=== PATIENT | female | born 1990 | race Caucasian/White ===

== ENCOUNTER 2016-05-01 20:32 | Emergency (ER) | payer MEDICAID ==
[~2016-05-01 20:32] MED LIST: ACET50TA PO; CELE10TA PO; HYDR-3363 PO; IBUP600T26 PO; IBUP80TA PO; PRENTAB43 PO; PRENTAB9 PO; TRAZ50TA2 PO
[2016-05-01] MEDS ORDERED: KETOROLAC TROMETHAMINE 10 MG TAB As Ordered ONE (21:43)
--- NOTE | 2016-05-01 21:56 | EDDOCDS ---
Physician Documentation [facility] Name: Phyllis Horne Age: 25 yrs Sex: Female : 1990 Arrival Date: 05/01/2016 Time: 20:32 Bed 5 Private MD: No Pcp Disposition: 05/01 21:39 Critical Care: Critical care not applicable. pc Disposition: 05/01/16 21:41 Discharged to Home/Self Care. Impression: Fracture of tooth (traumatic) - chronic. - Condition is Stable. - Discharge Instructions: Dental Fracture, Dental Pain. - Prescriptions for ketorolac 10 mg Oral Tablet - take 1 tablet by ORAL route every 6 hours As needed MDD- 40mg. Up to 5 days total use.; 20 tablet. - Medication Reconciliation, Local Pharmacy Hours form. - Follow up: Your, Dentist; When: Call to arrange an appointment; Reason: Continuance of care. - Problem is chronic. - Symptoms are unchanged. HPI: 21:33 This 25 yrs old Female presents to ER via Walkin/Carried/Asstd with pc complaints of Toothache. 21:33 The history is obtained from the patient. She complains of left upper dental pain for 3 pc weeks, not able to see her dentist for 2 weeks. She denies facial swelling, fevers or chills. The patient has experienced similar episodes in the past, multiple times. The patient has not recently seen a physician. Historical: - Allergies: Amoxicillin (Hives); - Home Meds: 1. none - PMHx: Substance Abuse; Depression; Suicide Attempt by OD; - PSHx: Tonsillectomy; - The history from nurses notes was reviewed: and elements of the historical information I have obtained differs from that reported to nursing. - Social history: Smoking status: Patient uses tobacco products, heavy tobacco smoker. No barriers to communication noted, The patient speaks fluent Scottish, Speaks appropriately for age. - : The pt / caregiver states he / she is not on anticoagulants. Home medication list is obtained from the patient. - Hospitalizations: : No recent hospitalization is reported. - Exposure Risk Screening:: None identified. - Immunization history:: All immunizations up-to-date. - Family history: Not pertinent. - Social history:: the patient is a non-smoker, the patient does not drink alcohol, the patient does not use illicit drugs, but her EMR shows multiple admissions to the out-patient addictions clinic which she refuses to acknowledge when confronted. 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 pc Exam: 21:37 General Appearance: no acute distress, alert. pc 21:37 EENT: fractured left upper 1st molar without gingival edema or erythema and no signs of infection. No facial pain or erythema. Vital Signs: 20:36 BP 115 / 71; Pulse 105; Resp 16; Temp 97.6(O); Pulse Ox 100% ; Weight 49.9 kg / 110.01 cmb lbs; Height 5 ft. 3 in. (160.02 cm); Pain 9/10; 21:44 BP 131 / 71; Pulse 100; Resp 18; Temp 97.9(TE); Pulse Ox 98% on R/A; mynor 20:36 Body Mass Index 19.49 (49.90 kg, 160.02 cm) cmb MDM: 21:39 Differential Diagnosis: dental pain with fracture without infection. Plan: analgesia. pc Data reviewed: old medical records, vital signs, nurses notes. Test interpretation: none. The patient has been re-examined and re-evaluated. There is no appreciated change of the patient's symptoms at this time. Disposition: The historical points, examination findings, and any diagnostic results supporting the provided diagnosis, were discussed with the patient or legal guardian. The need for outpatient follow up with the provider listed on their discharge instructions was discussed. They were encouraged to return to [facility], or the nearest ED, if symptoms worsen/persist, or for any other questions/concerns. 21:42 ketorolac 10 mg PO once ordered. pc Administered Medications: 20:45 Drug: ketorolac 10 mg [ketorolac 10 mg tablet (1 tabs)] Route: PO; manuel Signatures: Bassem Bar MD MD pc Sovie, Carolyn, RN RN cas Zecher, Calvin, RN RN cz The chart was reviewed and I authenticate all verbal orders and agree with the evaluation and treatment provided.Corrections: (The following items were deleted from the chart) 21:38 20:41 PMHx: none; cz pc 21:38 20:41 PSHx: none; cz pc MTDD
--- NOTE | 2016-05-01 21:57 | EDDOCDS ---
Nurse's Notes [facility] Name: Phyllis Horne Age: 25 yrs Sex: Female : 1990 Arrival Date: 05/01/2016 Time: 20:32 Bed 5 Private MD: No Pcp Diagnosis: Fracture of tooth (traumatic)-chronic Presentation: 05/01 20:39 Presenting complaint: Patient states: she has had dental pain for a couple of weeks cz fractured molar left side of face. Adult Sepsis Screening: The patient does not have new or worsening altered mentation. Patient's respiratory rate is less than 22. Systolic blood pressure is greater than 100. Patient has a qSOFA score of 0- Negative Sepsis Screen. Suicide/Homicide risk assessment- the patient denies having any suicidal and/or homicidal ideations and does not present with any other emotional, behavioral or mental health complaints. 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 Transition of care: patient was not received from another setting of care. 20:39 Acuity: JORDAN Level 5 cz 20:39 Method Of Arrival: Walkin/Carried/Asstd cz Triage Assessment: 20:41 General: Appears in no apparent distress. Pain: Location: left jaw. HIV screening NA cz for this visit Offered previously. 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 none - PMHx: Substance Abuse; Depression; Suicide Attempt by OD; - PSHx: Tonsillectomy; - The history from nurses notes was reviewed: and elements of the historical information I have obtained differs from that reported to nursing. - Social history: Smoking status: Patient uses tobacco products, heavy tobacco smoker. No barriers to communication noted, The patient speaks fluent Romansh, Speaks appropriately for age. - : The pt / caregiver states he / she is not on anticoagulants. Home medication list is obtained from the patient. - Hospitalizations: : No recent hospitalization is reported. - Exposure Risk Screening:: None identified. - Immunization history:: All immunizations up-to-date. - Family history: Not pertinent. - Social history:: the patient is a non-smoker, the patient does not drink alcohol, the patient does not use illicit drugs, but her EMR shows multiple admissions to the out-patient addictions clinic which she refuses to acknowledge when confronted. Screenin:53 Screening information is obtained from the patient. Fall risk: No risks identified. manuel Assistance ADL's: requires no assistance with activities of daily living. Abuse/DV Screen: The patient / caregiver reports he/she is: not in a situation that causes fear, pain or injury. Nutritional screening: No deficits noted. Advance Directives: Currently, there is no health care proxy. There is no active DNR order. There is no living will. There is no Power of Tree Surgeon. Advance directive information has not previously been placed in an [facility] medical record. home support is adequate. Assessment: 21:00 General: Appears uncomfortable, Behavior is appropriate for age, cooperative. Pain: manuel Location: mouth and left jaw. Neurological: No deficits noted. EENT: Reports pain in left upper jaw. Cardiovascular: No deficits noted. Respiratory: No deficits noted. GI: No deficits noted. Derm: Skin is pink, warm & dry. 21:52 Reassessment:. General: Appears uncomfortable. Pain: Location: mouth. Neurological: No manuel deficits noted. EENT: Reports pain in left upper jaw. pain med just administered prior to Discharge. . Derm: Skin is pink, warm & dry. Vital Signs: 20:36 BP 115 / 71; Pulse 105; Resp 16; Temp 97.6(O); Pulse Ox 100% ; Weight 49.9 kg; Height 5 cmb ft. 3 in. (160.02 cm); Pain 9/10; 21:44 BP 131 / 71; Pulse 100; Resp 18; Temp 97.9(TE); Pulse Ox 98% on R/A; mynor 20:36 Body Mass Index 19.49 (49.90 kg, 160.02 cm) cmb Vitals: 20:36 Log In Time: May 01, 2016 at 20:32. cmb ED Course: 20:35 Patient visited by Chelsea Kumar. cmb 20:35 Patient moved to Waiting cmb 20:36 No Pcp is Private Physician. cmb 20:37 Patient moved to Pre RCE cmb 20:41 Triage Initiated cz 20:59 Francesca Kennedy,RN is Primary Nurse. lf1 20:59 Patient moved to 5 lf1 21:00 The patient / caregiver is instructed regarding the plan of care and ED course. manuel 21:24 Bassem Bar MD is Attending Physician. pc 21:30 Patient visited by Bassem Bar MD. pc 21:41 Your, Dentist is Referral Physician. pc 21:45 Patient visited by Monica Hutton PCA. mynor 21:55 No IV's were initiated during this patient's visit. No procedures done that require manuel assistance. Administered Medications: 20:45 Drug: ketorolac 10 mg [ketorolac 10 mg tablet (1 tabs)] Route: PO; manuel Order Results: There are currently no results for this order. Outcome: 21:41 Discharge ordered by Provider. pc 21:54 Discharge Assessment: Patient awake, alert and oriented x 3. No cognitive and/or manuel functional deficits noted. Patient verbalized understanding of disposition instructions. patient administered narcotics - no. The following High Risk Discharge criteria are identified: None. Discharged to home ambulatory. Condition: good. Discharge instructions given to patient, Instructed on discharge instructions, follow up and referral plans. medication usage, Demonstrated understanding of instructions, medications, Prescriptions given X 1. No special radiology studies were completed. Property :Personal belongings accompany Pt. 21:55 Patient left the ED. manuel Signatures: Bassem Bar MD MD pc Sovie, CarolynRN RN Anival Marques RN RN cz Ford, Lisa, RN RN 1 Monica Hutton PCA PCA dre Boshart, Chelsea cmb Corrections: (The following items were deleted from the chart) 21:38 20:41 PMHx: none; cz pc 21:38 20:41 PSHx: none; cz pc MTDD
--- NOTE | 2016-05-03 22:57 | EDDOCDS ---
Nurse's Notes [facility] Name: Phyllis Horne Age: 25 yrs Sex: Female : 1990 Arrival Date: 05/01/2016 Time: 20:32 Bed 5 Private MD: No Pcp Diagnosis: Fracture of tooth (traumatic)-chronic Presentation: 05/01 20:39 Presenting complaint: Patient states: she has had dental pain for a couple of weeks cz fractured molar left side of face. Adult Sepsis Screening: The patient does not have new or worsening altered mentation. Patient's respiratory rate is less than 22. Systolic blood pressure is greater than 100. Patient has a qSOFA score of 0- Negative Sepsis Screen. Suicide/Homicide risk assessment- the patient denies having any suicidal and/or homicidal ideations and does not present with any other emotional, behavioral or mental health complaints. 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 Transition of care: patient was not received from another setting of care. 20:39 Acuity: JORDAN Level 5 cz 20:39 Method Of Arrival: Walkin/Carried/Asstd cz Triage Assessment: 20:41 General: Appears in no apparent distress. Pain: Location: left jaw. HIV screening NA cz for this visit Offered previously. 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 none - PMHx: Substance Abuse; Depression; Suicide Attempt by OD; - PSHx: Tonsillectomy; - The history from nurses notes was reviewed: and elements of the historical information I have obtained differs from that reported to nursing. - Social history: Smoking status: Patient uses tobacco products, heavy tobacco smoker. No barriers to communication noted, The patient speaks fluent Czech, Speaks appropriately for age. - : The pt / caregiver states he / she is not on anticoagulants. Home medication list is obtained from the patient. - Hospitalizations: : No recent hospitalization is reported. - Exposure Risk Screening:: None identified. - Immunization history:: All immunizations up-to-date. - Family history: Not pertinent. - Social history:: the patient is a non-smoker, the patient does not drink alcohol, the patient does not use illicit drugs, but her EMR shows multiple admissions to the out-patient addictions clinic which she refuses to acknowledge when confronted. Screenin:53 Screening information is obtained from the patient. Fall risk: No risks identified. manuel Assistance ADL's: requires no assistance with activities of daily living. Abuse/DV Screen: The patient / caregiver reports he/she is: not in a situation that causes fear, pain or injury. Nutritional screening: No deficits noted. Advance Directives: Currently, there is no health care proxy. There is no active DNR order. There is no living will. There is no Power of Resizer Operator. Advance directive information has not previously been placed in an [facility] medical record. home support is adequate. Assessment: 21:00 General: Appears uncomfortable, Behavior is appropriate for age, cooperative. Pain: manuel Location: mouth and left jaw. Neurological: No deficits noted. EENT: Reports pain in left upper jaw. Cardiovascular: No deficits noted. Respiratory: No deficits noted. GI: No deficits noted. Derm: Skin is pink, warm & dry. 21:52 Reassessment:. General: Appears uncomfortable. Pain: Location: mouth. Neurological: No manuel deficits noted. EENT: Reports pain in left upper jaw. pain med just administered prior to Discharge. . Derm: Skin is pink, warm & dry. 22:25 General: Pt presents to E area to request Medicaid Cab. lf1 Vital Signs: 20:36 BP 115 / 71; Pulse 105; Resp 16; Temp 97.6(O); Pulse Ox 100% ; Weight 49.9 kg; Height 5 cmb ft. 3 in. (160.02 cm); Pain 9/10; 21:44 BP 131 / 71; Pulse 100; Resp 18; Temp 97.9(TE); Pulse Ox 98% on R/A; mynor 20:36 Body Mass Index 19.49 (49.90 kg, 160.02 cm) cmb Vitals: 20:36 Log In Time: May 01, 2016 at 20:32. cmb ED Course: 20:35 Patient visited by Chelsea Kumar. cmb 20:35 Patient moved to Waiting cmb 20:36 No Pcp is Private Physician. cmb 20:37 Patient moved to Pre RCE cmb 20:41 Triage Initiated cz 20:59 Francesca KennedyRN is Primary Nurse. lf1 20:59 Patient moved to 5 lf1 21:00 The patient / caregiver is instructed regarding the plan of care and ED course. manuel 21:24 Bassem Bar MD is Attending Physician. pc 21:30 Patient visited by Bassem Bar MD. pc 21:41 Your, Dentist is Referral Physician. pc 21:45 Patient visited by Monica Hutton PCA. mynor 21:55 No IV's were initiated during this patient's visit. No procedures done that require manuel assistance. 22:26 [facility] Payment Agreement was scanned into [employer] and attached to record. [email or web address] Administered Medications: 20:45 Drug: ketorolac 10 mg [ketorolac 10 mg tablet (1 tabs)] Route: PO; manuel Order Results: There are currently no results for this order. Outcome: 21:41 Discharge ordered by Provider. pc 21:54 Discharge Assessment: Patient awake, alert and oriented x 3. No cognitive and/or manuel functional deficits noted. Patient verbalized understanding of disposition instructions. patient administered narcotics - no. The following High Risk Discharge criteria are identified: None. Discharged to home ambulatory. Condition: good. Discharge instructions given to patient, Instructed on discharge instructions, follow up and referral plans. medication usage, Demonstrated understanding of instructions, medications, Prescriptions given X 1. No special radiology studies were completed. Property :Personal belongings accompany Pt. 21:55 Patient left the ED. manuel Signatures: Bassem Bar MD MD pc Sovie, Carolyn,RN Anival Bush cas, RN RN cz Ford, Lisa, RN RN lf1 Monica Hutton PCA BUILDING ARCHITECTURAL DESIGNER Chelsea Steele Kimberly, Reg Reg [email or web address] Corrections: (The following items were deleted from the chart) 21:38 20:41 PMHx: none; cz pc 21:38 20:41 PSHx: none; cz pc Chart Complete MTDD
--- NOTE | 2016-05-03 22:57 | EDDOCDS ---
Physician Documentation [facility] Name: Phyllis Horne Age: 25 yrs Sex: Female : 1990 Arrival Date: 05/01/2016 Time: 20:32 Bed 5 Private MD: No Pcp Disposition: 05/01 21:39 Critical Care: Critical care not applicable. pc Disposition: 05/01/16 21:41 Discharged to Home/Self Care. Impression: Fracture of tooth (traumatic) - chronic. - Condition is Stable. - Discharge Instructions: Dental Fracture, Dental Pain. - Prescriptions for ketorolac 10 mg Oral Tablet - take 1 tablet by ORAL route every 6 hours As needed MDD- 40mg. Up to 5 days total use.; 20 tablet. - Medication Reconciliation, Local Pharmacy Hours form. - Follow up: Your, Dentist; When: Call to arrange an appointment; Reason: Continuance of care. - Problem is chronic. - Symptoms are unchanged. HPI: 21:33 This 25 yrs old Female presents to ER via Walkin/Carried/Asstd with pc complaints of Toothache. 21:33 The history is obtained from the patient. She complains of left upper dental pain for 3 pc weeks, not able to see her dentist for 2 weeks. She denies facial swelling, fevers or chills. The patient has experienced similar episodes in the past, multiple times. The patient has not recently seen a physician. Historical: - Allergies: Amoxicillin (Hives); - Home Meds: 1. none - PMHx: Substance Abuse; Depression; Suicide Attempt by OD; - PSHx: Tonsillectomy; - The history from nurses notes was reviewed: and elements of the historical information I have obtained differs from that reported to nursing. - Social history: Smoking status: Patient uses tobacco products, heavy tobacco smoker. No barriers to communication noted, The patient speaks fluent Mauritian, Speaks appropriately for age. - : The pt / caregiver states he / she is not on anticoagulants. Home medication list is obtained from the patient. - Hospitalizations: : No recent hospitalization is reported. - Exposure Risk Screening:: None identified. - Immunization history:: All immunizations up-to-date. - Family history: Not pertinent. - Social history:: the patient is a non-smoker, the patient does not drink alcohol, the patient does not use illicit drugs, but her EMR shows multiple admissions to the out-patient addictions clinic which she refuses to acknowledge when confronted. 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 pc Exam: 21:37 General Appearance: no acute distress, alert. pc 21:37 EENT: fractured left upper 1st molar without gingival edema or erythema and no signs of infection. No facial pain or erythema. Vital Signs: 20:36 BP 115 / 71; Pulse 105; Resp 16; Temp 97.6(O); Pulse Ox 100% ; Weight 49.9 kg / 110.01 cmb lbs; Height 5 ft. 3 in. (160.02 cm); Pain 9/10; 21:44 BP 131 / 71; Pulse 100; Resp 18; Temp 97.9(TE); Pulse Ox 98% on R/A; mynor 20:36 Body Mass Index 19.49 (49.90 kg, 160.02 cm) cmb MDM: 21:39 Differential Diagnosis: dental pain with fracture without infection. Plan: analgesia. pc Data reviewed: old medical records, vital signs, nurses notes. Test interpretation: none. The patient has been re-examined and re-evaluated. There is no appreciated change of the patient's symptoms at this time. Disposition: The historical points, examination findings, and any diagnostic results supporting the provided diagnosis, were discussed with the patient or legal guardian. The need for outpatient follow up with the provider listed on their discharge instructions was discussed. They were encouraged to return to [facility], or the nearest ED, if symptoms worsen/persist, or for any other questions/concerns. 21:42 ketorolac 10 mg PO once ordered. pc 22:25 Financial registration complete. [email or web address] 22:26 [facility] Payment Agreement was scanned into [employer] and attached to record. [email or web address] Administered Medications: 20:45 Drug: ketorolac 10 mg [ketorolac 10 mg tablet (1 tabs)] Route: PO; manuel Signatures: Bassem Bar MD MD pc Sovie, Carolyn, RN RN cas Zecher, Calvin, RN RN cz Sorenson, Kimberly, Reg Reg [email or web address] The chart was reviewed and I authenticate all verbal orders and agree with the evaluation and treatment provided.Corrections: (The following items were deleted from the chart) 21:38 20:41 PMHx: none; cz pc : PSHx: none; cz pc : : [facility] Payment Agreement [email or web address] Chart Complete MTDD
--- NOTE | 2016-05-03 22:57 | EDDOCDS ---
Physician Documentation [facility] Name: Phyllis Horne Age: 25 yrs Sex: Female : 1990 Arrival Date: 05/01/2016 Time: 20:32 Bed 5 Private MD: No Pcp Disposition: 05/01 21:39 Critical Care: Critical care not applicable. pc Disposition: 05/01/16 21:41 Discharged to Home/Self Care. Impression: Fracture of tooth (traumatic) - chronic. - Condition is Stable. - Discharge Instructions: Dental Fracture, Dental Pain. - Prescriptions for ketorolac 10 mg Oral Tablet - take 1 tablet by ORAL route every 6 hours As needed MDD- 40mg. Up to 5 days total use.; 20 tablet. - Medication Reconciliation, Local Pharmacy Hours form. - Follow up: Your, Dentist; When: Call to arrange an appointment; Reason: Continuance of care. - Problem is chronic. - Symptoms are unchanged. HPI: 21:33 This 25 yrs old Female presents to ER via Walkin/Carried/Asstd with pc complaints of Toothache. 21:33 The history is obtained from the patient. She complains of left upper dental pain for 3 pc weeks, not able to see her dentist for 2 weeks. She denies facial swelling, fevers or chills. The patient has experienced similar episodes in the past, multiple times. The patient has not recently seen a physician. Historical: - Allergies: Amoxicillin (Hives); - Home Meds: 1. none - PMHx: Substance Abuse; Depression; Suicide Attempt by OD; - PSHx: Tonsillectomy; - The history from nurses notes was reviewed: and elements of the historical information I have obtained differs from that reported to nursing. - Social history: Smoking status: Patient uses tobacco products, heavy tobacco smoker. No barriers to communication noted, The patient speaks fluent Malawian, Speaks appropriately for age. - : The pt / caregiver states he / she is not on anticoagulants. Home medication list is obtained from the patient. - Hospitalizations: : No recent hospitalization is reported. - Exposure Risk Screening:: None identified. - Immunization history:: All immunizations up-to-date. - Family history: Not pertinent. - Social history:: the patient is a non-smoker, the patient does not drink alcohol, the patient does not use illicit drugs, but her EMR shows multiple admissions to the out-patient addictions clinic which she refuses to acknowledge when confronted. 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 pc Exam: 21:37 General Appearance: no acute distress, alert. pc 21:37 EENT: fractured left upper 1st molar without gingival edema or erythema and no signs of infection. No facial pain or erythema. Vital Signs: 20:36 BP 115 / 71; Pulse 105; Resp 16; Temp 97.6(O); Pulse Ox 100% ; Weight 49.9 kg / 110.01 cmb lbs; Height 5 ft. 3 in. (160.02 cm); Pain 9/10; 21:44 BP 131 / 71; Pulse 100; Resp 18; Temp 97.9(TE); Pulse Ox 98% on R/A; mynor 20:36 Body Mass Index 19.49 (49.90 kg, 160.02 cm) cmb MDM: 21:39 Differential Diagnosis: dental pain with fracture without infection. Plan: analgesia. pc Data reviewed: old medical records, vital signs, nurses notes. Test interpretation: none. The patient has been re-examined and re-evaluated. There is no appreciated change of the patient's symptoms at this time. Disposition: The historical points, examination findings, and any diagnostic results supporting the provided diagnosis, were discussed with the patient or legal guardian. The need for outpatient follow up with the provider listed on their discharge instructions was discussed. They were encouraged to return to [facility], or the nearest ED, if symptoms worsen/persist, or for any other questions/concerns. 21:42 ketorolac 10 mg PO once ordered. pc 22:25 Financial registration complete. [email or web address] 22:26 [facility] Payment Agreement was scanned into [employer] and attached to record. [email or web address] Administered Medications: 20:45 Drug: ketorolac 10 mg [ketorolac 10 mg tablet (1 tabs)] Route: PO; manuel Signatures: Bassem Bar MD MD pc Sovie, Carolyn, RN RN cas Zecher, Calvin, RN RN cz Sorenson, Kimberly, Reg Reg ks16 The chart was reviewed and I authenticate all verbal orders and agree with the evaluation and treatment provided.Corrections: (The following items were deleted from the chart) 21:38 20:41 PMHx: none; cz pc : PSHx: none; cz pc : : [facility] Payment Agreement [email or web address] Chart Complete MTDD
== END 2016-05-01 21:55 | disposition home or self-care (01) ==
LOC: M ED 20:32
DX: K03.81 Cracked tooth (principal); F19.10 Other psychoactive substance abuse, uncomplicated; F32.9 Major depressive disorder, single episode, unspecified; Z91.5 Personal history of self-harm; F17.210 Nicotine dependence, cigarettes, uncomplicated; Z88.0 Allergy status to penicillin

== ENCOUNTER 2016-05-07 08:45 | Outpatient (RCR) | payer MEDICAID | END 2016-05-29 | LOC: M OUTALCOH 08:45 | PROVIDERS: ATTEND Psychiatry & Neurology Psychiatry | DX: F11.20 Opioid dependence, uncomplicated (principal); F17.200 Nicotine dependence, unspecified, uncomplicated ==

== ENCOUNTER 2016-06-18 18:29 | Emergency (ER) | payer MEDICAID, OTHER ==
[2016-06-18] MEDS ORDERED: GABAPENTIN 100 MG CAP As Ordered ONE (20:24)
--- NOTE | 2016-06-18 20:31 | EDDOCDS ---
Physician Documentation [facility] Name: Phyllis Horne Age: 25 yrs Sex: Female : 1990 Arrival Date: 06/18/2016 Time: 18:29 Bed TR7 Private MD: No Pcp Disposition: 06/18/16 20:22 Discharged to Home/Self Care. Impression: Atypical facial pain - neuropathy. - Condition is Stable. - Discharge Instructions: Neuropathic Pain. - Prescriptions for Neurontin 300 mg Oral Capsule - take 1 capsule by ORAL route every 8 hours; 30 capsule. - Medication Reconciliation form. - Follow up: Your, Dentist; When: Call to arrange an appointment; Reason: Recheck today's complaints, Continuance of care. - Problem is chronic. - Symptoms have improved. Historical: - Allergies: Amoxicillin (Hives); - Home Meds: 1. Clindamycin Oral Unknown every 8 hours 2. ibuprofen 800 mg Oral tab 1 tab 3 times per day - PMHx: Depression; Substance Abuse; Suicide attempt by OD; - PSHx: Tonsillectomy; - Social history: Smoking status: Patient uses tobacco products, heavy tobacco smoker. No barriers to communication noted, The patient speaks fluent Kuwaiti, Speaks appropriately for age. - Family history: Not pertinent. - : The pt / caregiver states he / she is not on anticoagulants. Home medication list is obtained from the patient. - Exposure Risk Screening:: None identified. 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 3 in. (160.02 cm); Pain 10/10; 20:28 BP 110 / 70; Pulse 77; Resp 18; Temp 96.9(O); Pulse Ox 97% on R/A; jmb 18:32 Body Mass Index 19.49 (49.90 kg, 160.02 cm) jrd MDM: 20:21 Gabapentin 300 mg PO once ordered. cc10 Administered Medications: 20:28 Drug: Gabapentin 300 mg [gabapentin 100 mg capsule (3 caps)] Route: PO; b Signatures: Phan Pickett,RN RN jmb Jean-Claude Boateng, PA-C PA-C cc10 MTDD
--- NOTE | 2016-06-18 20:31 | EDDOCDS ---
Nurse's Notes [facility] Name: Phyllis Horne Age: 25 yrs Sex: Female : 1990 Arrival Date: 06/18/2016 Time: 18:29 Bed TR7 Private MD: No Pcp Diagnosis: Atypical facial pain-neuropathy Presentation: 06/18 18:40 Presenting complaint: Patient states: Patient reports that she had tooth pulled three jmb weeks ago and has pain on left side of mouth. Patient reports that she called them but was in [place] and placed back on waiting list. Adult Sepsis Screening: The patient does not have new or worsening altered mentation. Patient's respiratory rate is less than 22. Systolic blood pressure is greater than 100. Patient has a qSOFA score of 0- Negative Sepsis Screen. Suicide/Homicide risk assessment- the patient denies having any suicidal and/or homicidal ideations and does not present with any other emotional, behavioral or mental health complaints. Status: Patient is not a disability services coordinator or dependent. Transition of care: patient was not received from another setting of care. 18:40 Acuity: JORDAN Level 5 [facility] 18:40 Method Of Arrival: Walkin/Carried/Asstd [facility] Triage Assessment: 18:42 General: Appears in no apparent distress, Behavior is appropriate for age, cooperative. [facility] Pain: Location: mouth Pain currently is 10 out of 10 on a pain scale. HIV screening NA for this visit Offered previously. Neurological: Level of Consciousness is awake, alert, obeys commands, Oriented to person, place, time, Speech is normal, Facial symmetry appears normal, Facial symmetry: tongue is midline. EENT: Reports pain Pain is 10 out of 10 on a pain scale. Respiratory: Airway is patent Respiratory effort is even, unlabored, Respiratory pattern is regular, symmetrical. Derm: Skin is pink, warm & dry. Musculoskeletal: Range of motion intact in all extremities. 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 Clindamycin Oral Unknown every 8 hours 2. ibuprofen 800 mg Oral tab 1 tab 3 times per day - PMHx: Depression; Substance Abuse; Suicide attempt by OD; - PSHx: Tonsillectomy; - Social history: Smoking status: Patient uses tobacco products, heavy tobacco smoker. No barriers to communication noted, The patient speaks fluent Estonian, Speaks appropriately for age. - Family history: Not pertinent. - : The pt / caregiver states he / she is not on anticoagulants. Home medication list is obtained from the patient. - Exposure Risk Screening:: None identified. Screenin:28 Screening information is obtained from the patient. Fall risk: No risks identified. jmb Assistance ADL's: requires no assistance with activities of daily living. Abuse/DV Screen: The patient / caregiver reports he/she is: not in a situation that causes fear, pain or injury. Nutritional screening: No deficits noted. Advance Directives: Currently, there is no health care proxy. There is no active DNR order. There is no living will. There is no Power of Fitter Up. home support is adequate. Assessment: 20:28 General: Patient instructed on discharge instructions. Patient asked if there were any b questions regarding discharge, patient stated no. Patient signed discharge instructions. Patient discharged in stable condition. . Vital Signs: 18:32 BP 107 / 67 RA Sitting (auto/reg); Pulse 105; Resp 16; Temp 97.1(O); Pulse Ox 100% on jrd R/A; Weight 49.9 kg (R); Height 5 ft. 3 in. (160.02 cm); Pain 10/10; 20:28 BP 110 / 70; Pulse 77; Resp 18; Temp 96.9(O); Pulse Ox 97% on R/A; jmb 18:32 Body Mass Index 19.49 (49.90 kg, 160.02 cm) [facility] Vitals: 18:32 Log In Time: June 18, 2016 at 18:20. [facility] ED Course: 18:31 Patient visited by Abhinav Bridges PCA. jrd 18:31 Patient moved to Waiting jrd 18:32 No Pcp is Private Physician. jrd 18:33 Patient visited by Abhinav Bridges PCA. jrd 18:33 Patient moved to Pre RCE jrd 18:41 Triage Initiated jmb 19:58 Patient moved to Triage 1 jmb 20:12 Jean-Claude Boateng PA-C is PHCP. cc10 20:12 Colton Drew DO is Attending Physician. cc10 20:12 Patient visited by Jean-Claude Boateng PA-C. cc10 20:12 Patient visited by Jean-Claude Boateng PA-C. cc10 20:22 Your, Dentist is Referral Physician. cc10 20:28 The patient / caregiver is instructed regarding the plan of care and ED course. jmb 20:28 No IV's were initiated during this patient's visit. No procedures done that require jmb assistance. 20:29 Patient moved to [facility] ar3 Administered Medications: 20:28 Drug: Gabapentin 300 mg [gabapentin 100 mg capsule (3 caps)] Route: PO; jmb Order Results: There are currently no results for this order. Outcome: 20:22 Discharge ordered by Provider. cc10 20:28 Discharge Assessment: Patient awake, alert and oriented x 3. No cognitive and/or jmb functional deficits noted. Patient verbalized understanding of disposition instructions. Patient awake and alert. obeys commands, Oriented to person, place and time. Patient verbalized understanding of disposition instructions. Patient has no functional deficits. patient administered narcotics - no. The following High Risk Discharge criteria are identified: None. Discharged to home ambulatory. Condition: stable Condition: improved. Discharge instructions given to patient, Instructed on discharge instructions, follow up and referral plans. medication usage, Demonstrated understanding of instructions, medications, Pt was receptive of discharge instructions/ teaching. Prescriptions given X 1. No special radiology studies were completed. Property sent home with patient. 20:30 Patient left the ED. jmb Signatures: Stephanie King, BARREL CUTTER BARREL CUTTER ar3 Phan Pickett,RN RN Jean-Claude Conteh PA-C PA-C cc10 Abhinav Bridges, BARREL CUTTER BARREL CUTTER jrd MTDD
--- NOTE | 2016-06-20 21:31 | EDDOCDS ---
Physician Documentation [facility] Name: Phyllis Horne Age: 25 yrs Sex: Female : 1990 Arrival Date: 06/18/2016 Time: 18:29 Bed TR7 Private MD: No Pcp Disposition: 06/18/16 20:22 Discharged to Home/Self Care. Impression: Atypical facial pain - neuropathy. - Condition is Stable. - Discharge Instructions: Neuropathic Pain. - Prescriptions for Neurontin 300 mg Oral Capsule - take 1 capsule by ORAL route every 8 hours; 30 capsule. - Medication Reconciliation form. - Follow up: Your, Dentist; When: Call to arrange an appointment; Reason: Recheck today's complaints, Continuance of care. - Problem is chronic. - Symptoms have improved. Historical: - Allergies: Amoxicillin (Hives); - Home Meds: 1. Clindamycin Oral Unknown every 8 hours 2. ibuprofen 800 mg Oral tab 1 tab 3 times per day - PMHx: Depression; Substance Abuse; Suicide attempt by OD; - PSHx: Tonsillectomy; - Social history: Smoking status: Patient uses tobacco products, heavy tobacco smoker. No barriers to communication noted, The patient speaks fluent Welsh, Speaks appropriately for age. - Family history: Not pertinent. - : The pt / caregiver states he / she is not on anticoagulants. Home medication list is obtained from the patient. - Exposure Risk Screening:: None identified. 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 3 in. (160.02 cm); Pain 10/10; 20:28 BP 110 / 70; Pulse 77; Resp 18; Temp 96.9(O); Pulse Ox 97% on R/A; jmb 18:32 Body Mass Index 19.49 (49.90 kg, 160.02 cm) jrd MDM: 20:21 Gabapentin 300 mg PO once ordered. cc10 22:00 [facility] [place] Agreement was scanned into [employer] and attached to record. gjb 22:01 Financial registration complete. gjb 02/21 11:17 T-Sheet-- Draft Copy was scanned into [employer] and attached to record. gb Administered Medications: 06/18 20:28 Drug: Gabapentin 300 mg [gabapentin 100 mg capsule (3 caps)] Route: PO; kathleen Signatures: Georgia Dick, Reg Reg Phan Hayes RN RN Jean-Claude Conteh, PAJeanC PADonna cc10 Gloria Moreira The chart was reviewed and I authenticate all verbal orders and agree with the evaluation and treatment provided.Attachments: 22:00 [facility] Payment Agreement gjb 06/19 11:17 T-Sheet-- Draft Copy gb Chart Complete MTDD
--- NOTE | 2016-06-20 21:31 | EDDOCDS ---
Nurse's Notes [facility] Name: Phyllis Horne Age: 25 yrs Sex: Female : 1990 Arrival Date: 06/18/2016 Time: 18:29 Bed TR7 Private MD: No Pcp Diagnosis: Atypical facial pain-neuropathy Presentation: 06/18 18:40 Presenting complaint: Patient states: Patient reports that she had tooth pulled three jmb weeks ago and has pain on left side of mouth. Patient reports that she called them but was in [place] and placed back on waiting list. Adult Sepsis Screening: The patient does not have new or worsening altered mentation. Patient's respiratory rate is less than 22. Systolic blood pressure is greater than 100. Patient has a qSOFA score of 0- Negative Sepsis Screen. Suicide/Homicide risk assessment- the patient denies having any suicidal and/or homicidal ideations and does not present with any other emotional, behavioral or mental health complaints. Status: Patient is not a park services specialist or dependent. Transition of care: patient was not received from another setting of care. 18:40 Acuity: JORDAN Level 5 [facility] 18:40 Method Of Arrival: Walkin/Carried/Asstd [facility] Triage Assessment: 18:42 General: Appears in no apparent distress, Behavior is appropriate for age, cooperative. [facility] Pain: Location: mouth Pain currently is 10 out of 10 on a pain scale. HIV screening NA for this visit Offered previously. Neurological: Level of Consciousness is awake, alert, obeys commands, Oriented to person, place, time, Speech is normal, Facial symmetry appears normal, Facial symmetry: tongue is midline. EENT: Reports pain Pain is 10 out of 10 on a pain scale. Respiratory: Airway is patent Respiratory effort is even, unlabored, Respiratory pattern is regular, symmetrical. Derm: Skin is pink, warm & dry. Musculoskeletal: Range of motion intact in all extremities. 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 Clindamycin Oral Unknown every 8 hours 2. ibuprofen 800 mg Oral tab 1 tab 3 times per day - PMHx: Depression; Substance Abuse; Suicide attempt by OD; - PSHx: Tonsillectomy; - Social history: Smoking status: Patient uses tobacco products, heavy tobacco smoker. No barriers to communication noted, The patient speaks fluent Mongolian, Speaks appropriately for age. - Family history: Not pertinent. - : The pt / caregiver states he / she is not on anticoagulants. Home medication list is obtained from the patient. - Exposure Risk Screening:: None identified. Screenin:28 Screening information is obtained from the patient. Fall risk: No risks identified. jmb Assistance ADL's: requires no assistance with activities of daily living. Abuse/DV Screen: The patient / caregiver reports he/she is: not in a situation that causes fear, pain or injury. Nutritional screening: No deficits noted. Advance Directives: Currently, there is no health care proxy. There is no active DNR order. There is no living will. There is no Power of Geographic Analyst. home support is adequate. Assessment: 20:28 General: Patient instructed on discharge instructions. Patient asked if there were any b questions regarding discharge, patient stated no. Patient signed discharge instructions. Patient discharged in stable condition. . Vital Signs: 18:32 BP 107 / 67 RA Sitting (auto/reg); Pulse 105; Resp 16; Temp 97.1(O); Pulse Ox 100% on jrd R/A; Weight 49.9 kg (R); Height 5 ft. 3 in. (160.02 cm); Pain 10/10; 20:28 BP 110 / 70; Pulse 77; Resp 18; Temp 96.9(O); Pulse Ox 97% on R/A; jmb 18:32 Body Mass Index 19.49 (49.90 kg, 160.02 cm) [facility] Vitals: 18:32 Log In Time: June 18, 2016 at 18:20. [facility] ED Course: 18:31 Patient visited by Abhinav Bridges PCA. jrd 18:31 Patient moved to Waiting jrd 18:32 No Pcp is Private Physician. jrd 18:33 Patient visited by Abhinav Bridges PCA. jrd 18:33 Patient moved to Pre RCE jrd 18:41 Triage Initiated jmb 19:58 Patient moved to Triage 1 jmb 20:12 Jean-Claude Boateng PA-C is PHCP. cc10 20:12 Colton Drew DO is Attending Physician. cc10 20:12 Patient visited by Jean-Claude Boateng PA-C. cc10 20:12 Patient visited by Jean-Claude Boateng PA-C. cc10 20:22 Your, Dentist is Referral Physician. cc10 20:28 The patient / caregiver is instructed regarding the plan of care and ED course. jmb 20:28 No IV's were initiated during this patient's visit. No procedures done that require jmb assistance. 20:29 Patient moved to [place] [id number] 22:00 [facility] Payment Agreement was scanned into [employer] and attached to record. luis daniel 06/19 11:17 T-Sheet-- Draft Copy was scanned into [employer] and attached to record. gb Administered Medications: 06/18 20:28 Drug: Gabapentin 300 mg [gabapentin 100 mg capsule (3 caps)] Route: PO; jmb Order Results: There are currently no results for this order. Outcome: 20:22 Discharge ordered by Provider. cc10 20:28 Discharge Assessment: Patient awake, alert and oriented x 3. No cognitive and/or jmb functional deficits noted. Patient verbalized understanding of disposition instructions. Patient awake and alert. obeys commands, Oriented to person, place and time. Patient verbalized understanding of disposition instructions. Patient has no functional deficits. patient administered narcotics - no. The following High Risk Discharge criteria are identified: None. Discharged to home ambulatory. Condition: stable Condition: improved. Discharge instructions given to patient, Instructed on discharge instructions, follow up and referral plans. medication usage, Demonstrated understanding of instructions, medications, Pt was receptive of discharge instructions/ teaching. Prescriptions given X 1. No special radiology studies were completed. Property sent home with patient. 20:30 Patient left the ED. jmb Signatures: Georgia Dick, Reg Reg gb Stephanie King, MEDICAL APPOINTMENT SCHEDULER MEDICAL APPOINTMENT SCHEDULER ar3 Phan Pickett, RN RN Jean-Claude Conteh PA-C PA-C cc10 Abhinav Bridges, MEDICAL APPOINTMENT SCHEDULER MEDICAL APPOINTMENT SCHEDULER d Gloria Moreira Chart Complete MTDD
--- NOTE | 2016-06-20 21:31 | EDDOCDS ---
Physician Documentation [facility] Name: Phyllis Horne Age: 25 yrs Sex: Female : 1990 Arrival Date: 06/18/2016 Time: 18:29 Bed TR7 Private MD: No Pcp Disposition: 06/18/16 20:22 Discharged to Home/Self Care. Impression: Atypical facial pain - neuropathy. - Condition is Stable. - Discharge Instructions: Neuropathic Pain. - Prescriptions for Neurontin 300 mg Oral Capsule - take 1 capsule by ORAL route every 8 hours; 30 capsule. - Medication Reconciliation form. - Follow up: Your, Dentist; When: Call to arrange an appointment; Reason: Recheck today's complaints, Continuance of care. - Problem is chronic. - Symptoms have improved. Historical: - Allergies: Amoxicillin (Hives); - Home Meds: 1. Clindamycin Oral Unknown every 8 hours 2. ibuprofen 800 mg Oral tab 1 tab 3 times per day - PMHx: Depression; Substance Abuse; Suicide attempt by OD; - PSHx: Tonsillectomy; - Social history: Smoking status: Patient uses tobacco products, heavy tobacco smoker. No barriers to communication noted, The patient speaks fluent Iranian, Speaks appropriately for age. - Family history: Not pertinent. - : The pt / caregiver states he / she is not on anticoagulants. Home medication list is obtained from the patient. - Exposure Risk Screening:: None identified. SIDE FRAMER: 06/18 18:42 LMP 05/21/2016 [facility] Vital Signs: 18:32 BP 107 / 67 RA Sitting (auto/reg); Pulse 105; Resp 16; Temp 97.1(O); Pulse Ox 100% on jrd R/A; Weight 49.9 kg / 110.01 lbs (R); Height 5 ft. 3 in. (160.02 cm); Pain 10/10; 20:28 BP 110 / 70; Pulse 77; Resp 18; Temp 96.9(O); Pulse Ox 97% on R/A; jmb 18:32 Body Mass Index 19.49 (49.90 kg, 160.02 cm) jrd MDM: 20:21 Gabapentin 300 mg PO once ordered. cc10 22:00 [facility] Payment Agreement was scanned into [employer] and attached to record. gjb 22:01 Financial registration complete. gjb 02/21 11:17 T-Sheet-- Draft Copy was scanned into [employer] and attached to record. gb Administered Medications: 06/18 20:28 Drug: Gabapentin 300 mg [gabapentin 100 mg capsule (3 caps)] Route: PO; kathleen Signatures: Georgia Dick, Reg Reg Phan Hayes RN RN Jean-Claude Conteh, PAJeanC PADonna cc10 Gloria Moreira The chart was reviewed and I authenticate all verbal orders and agree with the evaluation and treatment provided.Attachments: 22:00 [facility] Payment Agreement gjb 06/19 11:17 T-Sheet-- Draft Copy gb Chart Complete MTDD
== END 2016-06-18 20:30 | disposition home or self-care (01) ==
LOC: M ED 18:29
DX: G51.9 Disorder of facial nerve, unspecified (principal); F32.9 Major depressive disorder, single episode, unspecified; F19.10 Other psychoactive substance abuse, uncomplicated; Z91.5 Personal history of self-harm; Z72.0 Tobacco use; Z88.0 Allergy status to penicillin

== ENCOUNTER → 2016-12-04 | Outpatient (CLI) | payer MEDICAID ==
[~2016-12-04] MED LIST changes: +MACR100C43 PO
== END ==
LOC: M OUTALCOH 08:09
PROVIDERS: ATTEND Psychiatry & Neurology Psychiatry
DX: F11.20 Opioid dependence, uncomplicated (principal); F13.20 Sedative, hypnotic or anxiolytic dependence, uncomplicated

== ENCOUNTER 2016-12-07 09:33 | Outpatient (RCR) | payer MEDICAID ==
[~2016-12-07 09:33] MED LIST changes: -MACR100C43 PO
== END 2016-12-27 ==
LOC: M OUTALCOH 09:33
PROVIDERS: ATTEND Psychiatry & Neurology Psychiatry
DX: F11.20 Opioid dependence, uncomplicated (principal); F13.10 Sedative, hypnotic or anxiolytic abuse, uncomplicated

== ENCOUNTER 2017-01-19 11:20 | Emergency (ER) | payer MEDICAID, OTHER ==
[~2017-01-19] VITALS: Ht 160 cm; Wt 50.0 kg
[2017-01-19 13:59] VITALS: BP 103/63
--- NOTE | 2017-01-19 14:00 | REP ---
PELVIC ULTRASOUND: Real-time sonographic evaluation of the pelvis is performed utilizing transabdominal and endovaginal technique. The bladder is collapsed. The uterus measures 8.4 x 3.9 x 5.2 cm. Endometrial thickness is 2 mm. No endometrial fluid collection. The ovaries are normal in size and echotexture, the right ovary measuring 3.2 x 2.3 x 1.9 cm and left ovary 3.6 x 2.3 x 2.2 cm. Normal sized follicles are seen in each ovary. There is no adnexal mass or free fluid. There is no evidence of ovarian torsion with blood flow seen in each is ovary with duplex Doppler evaluation, RI right ovary 0.54 and left ovary 0.62. IMPRESSION: Negative pelvic ultrasound as above. Signed by Sher Leija MD 01/19/2017 07:40 P
[2017-01-19] MEDS ORDERED: MACR100C43 PO (14:59)
[2017-01-19] MEDS ORDERED: AZITHROMYCIN 250 MG TAB PO ONE (15:00)
[2017-01-19] MEDS ORDERED: GENTAMICIN SULF INJ 80MG/2ML VIAL (J1580) IM ONE (15:00)
== END 2017-01-19 15:20 | disposition home or self-care (01) ==
LOC: M ED 11:20
DX: N30.01 Acute cystitis with hematuria (principal); A56.02 Chlamydial vulvovaginitis; A54.02 Gonococcal vulvovaginitis, unspecified; J45.909 Unspecified asthma, uncomplicated; F17.200 Nicotine dependence, unspecified, uncomplicated; Z88.0 Allergy status to penicillin; Z91.018 Allergy to other foods
CPT/HCPCS: 76830; 76856; 81001; 81025; 87086; 87210; 87491; 87591; 93976; 96372; 99283; J1580

== ENCOUNTER → 2017-03-10 | Outpatient (REF) | payer OTHER ==
[~2017-03-10] MED LIST changes: +MACR100C43 PO
== END ==
LOC: M LAB REF 09:56
PROVIDERS: ATTEND Physician Assistant Surgical
DX: Z20.2 Contact with and (suspected) exposure to infections with a predominantly sexual mode of transmission (principal)

== ENCOUNTER → 2017-09-18 | Outpatient (CLI) | payer OTHER ==
[2017-09-18 15:18] LABS: HEMATOCRIT 40.1 % (36.0-47.0); MEAN CORPUSCULAR HGB CONC 34.9 g/dl (32.0-36.5); MEAN CORPUSCULAR VOLUME 88.9 fl (80.0-96.0); PLATELET COUNT, AUTOMATED 225 10^3/uL (150-450); RED BLOOD COUNT 4.51 10^6/uL (4.00-5.40); RED CELL DISTRIBUTION WIDTH 12.2 % (11.5-14.5); WHITE BLOOD COUNT 5.4 10^3/uL (4.0-10.0)
[2017-09-18 15:44] LABS: ALBUMIN 4.8 GM/DL (3.2-5.2); ALKALINE PHOSPHATASE 74 U/L (45-117); ALT/SGPT 11 U/L (12-78); ANION GAP 7 MEQ/L (8-16); AST/SGOT 11 U/L (7-37); BILIRUBIN,TOTAL 0.5 MG/DL (0.2-1.0); BLOOD UREA NITROGEN 5 MG/DL (7-18); CALCIUM LEVEL 9.5 MG/DL (8.5-10.1); CARBON DIOXIDE LEVEL 29 MEQ/L (21-32); CHLORIDE LEVEL 105 MEQ/L (98-107); CREATININE FOR GFR 0.89 MG/DL (0.55-1.30); GLOMERULAR FILTRATION RATE > 60.0 (>60); GLUCOSE, FASTING 138 MG/DL (70-100); POTASSIUM SERUM 3.9 MEQ/L (3.5-5.1); SODIUM LEVEL 141 MEQ/L (136-145); TOTAL PROTEIN 7.8 GM/DL (6.4-8.2)
[2017-09-18 16:05] LABS: HEPATITIS B SURFACE ANTIGEN NEGATIVE (NEGATIVE)
[2017-09-18 16:33] LABS: HEPATITIS C VIRUS ABY INDEX 0.1 INDEX (<0.8); HIV 1&2 SCREEN CENTAUR NEGATIVE (NEGATIVE)
[2017-09-18 16:45] LABS: CHLAMYDIA DNA AMPLIFICATION NEGATIVE (NEGATIVE); GC DNA AMPLIFICATION NEGATIVE (NEGATIVE)
== END ==
LOC: M LAB 14:09
DX: F11.20 Opioid dependence, uncomplicated (principal)
CPT/HCPCS: 93005

== ENCOUNTER → 2018-03-21 | Outpatient (REF) | payer OTHER ==
[2018-03-21 17:27] LABS: HCG, SERUM QUANTITATIVE < 1.0 MIU/ML
== END ==
LOC: M LAB REF 16:29
DX: N91.2 Amenorrhea, unspecified (principal)

== ENCOUNTER → 2018-05-08 | Outpatient (CLI) | payer MEDICAID ==
[~2018-05-08] MED LIST changes: -ACET50TA PO; +MAPA500T2 PO
== END ==
LOC: M OUTALCOH 11:43
PROVIDERS: ATTEND Psychiatry & Neurology Psychiatry
DX: Z13.9 Encounter for screening, unspecified (principal); F11.20 Opioid dependence, uncomplicated

== ENCOUNTER 2018-05-19 14:40 | Outpatient (RCR) | payer MEDICAID | END 2018-05-29 | LOC: M OUTALCOH 14:40 | PROVIDERS: ATTEND Psychiatry & Neurology Psychiatry | DX: F11.20 Opioid dependence, uncomplicated (principal); F17.200 Nicotine dependence, unspecified, uncomplicated ==

== ENCOUNTER 2018-08-07 12:41 | Emergency (ER) | payer MEDICAID ==
[~2018-08-07] VITALS: Ht 160 cm; Wt 59.1 kg
[2018-08-07] MEDS ORDERED: SUBO8MIS (13:00)
[2018-08-07] MEDS ORDERED: BUPR150T3 PO (13:00)
[2018-08-07] MEDS ORDERED: PRAZ1CAP PO (13:00)
[2018-08-07] MEDS ORDERED: TRAZ-163 PO (13:00)
[2018-08-07] MEDS ORDERED: HYDR-3363 PO (13:00)
[2018-08-07 13:22] LABS: HEMATOCRIT 40.8 % (36.0-47.0); HEMOGLOBIN 14.1 g/dl (12.0-15.5); MEAN CORPUSCULAR HEMOGLOBIN 31.2 pg (27.0-33.0); MEAN CORPUSCULAR HGB CONC 34.6 g/dl (32.0-36.5); MEAN CORPUSCULAR VOLUME 90.3 fl (80.0-96.0); PLATELET COUNT, AUTOMATED 255 10^3/uL (150-450); RED BLOOD COUNT 4.52 10^6/uL (4.00-5.40)
[2018-08-07 13:36] LABS: AMPHETAMINES LEVEL URINE NEGATIVE (NEGATIVE); BARBITURATES URINE NEGATIVE (NEGATIVE); BENZODIAZEPINES URINE POSITIVE (NEGATIVE); CANNABINOIDS URINE NEGATIVE (NEGATIVE); COCAINE METABOLITE URINE POSITIVE (NEGATIVE); METHADONE URINE NEGATIVE (NEGATIVE); OPIATES URINE POSITIVE (NEGATIVE); PHENCYCLIDINE URINE NEGATIVE (NEGATIVE)
[2018-08-07 13:50] LABS: HCG, SERUM QUALITATIVE NEGATIVE (NEGATIVE)
[2018-08-07 13:59] LABS: ACETAMINOPHEN LEVEL < 2.0 UG/ML (10.0-30.0); ALBUMIN 4.9 GM/DL (3.2-5.2); ALT/SGPT 14 U/L (12-78); BILIRUBIN,DIRECT 0.2 MG/DL (0.0-0.2); BILIRUBIN,TOTAL 0.7 MG/DL (0.2-1.0); BLOOD UREA NITROGEN 7 MG/DL (7-18); CALCIUM LEVEL 9.4 MG/DL (8.5-10.1); CARBON DIOXIDE LEVEL 30 MEQ/L (21-32); CHLORIDE LEVEL 106 MEQ/L (98-107); CREATININE FOR GFR 0.79 MG/DL (0.55-1.30); ETHYL ALCOHOL (ETHANOL) < 0.003 % (0.000-0.010); GLOMERULAR FILTRATION RATE > 60.0 (>60); GLUCOSE, FASTING 112 MG/DL (70-100); POTASSIUM SERUM 3.9 MEQ/L (3.5-5.1); SALICYLATE LEVEL < 1.7 MG/DL (5.0-30.0); SODIUM LEVEL 139 MEQ/L (136-145); TOTAL PROTEIN 7.9 GM/DL (6.4-8.2)
[2018-08-07 16:59] VITALS: BP 121/88
== END 2018-08-07 17:01 | disposition home or self-care (01) ==
LOC: M ED 12:41
DX: F33.9 Major depressive disorder, recurrent, unspecified (principal); F11.10 Opioid abuse, uncomplicated; F14.10 Cocaine abuse, uncomplicated; F13.10 Sedative, hypnotic or anxiolytic abuse, uncomplicated; F34.9 Persistent mood [affective] disorder, unspecified; F17.200 Nicotine dependence, unspecified, uncomplicated; Z88.0 Allergy status to penicillin; Z91.018 Allergy to other foods; Z79.899 Other long term (current) drug therapy
CPT/HCPCS: 36415; 80048; 80076; 80307; 84443; 84703; 85027; 99283; G0480

== ENCOUNTER 2020-02-28 13:08 | Emergency (ER) | payer OTHER ==
[~2020-02-28] VITALS: Ht 160 cm; Wt 54.5 kg
[~2020-02-28 13:08] MED LIST changes: +BUPR150T3 PO; +PRAZ1CAP PO; +SUBO8MIS; +TRAZ-257 PO
[2020-02-28] MEDS ORDERED: ONDANSETRON 4MG/2ML VIAL IV ONE ×2 (13:45→16:15)
[2020-02-28] MEDS ORDERED: NS 1,000 ML IV ONE (13:45)
[2020-02-28 14:06] LABS: HCG, SERUM QUALITATIVE NEGATIVE (NEGATIVE)
[2020-02-28 14:26] LABS: HEMATOCRIT 45.2 % (36.0-47.0); HEMOGLOBIN 15.1 g/dl (12.0-15.5); MEAN CORPUSCULAR HGB CONC 33.4 g/dl (32.0-36.5); MEAN CORPUSCULAR VOLUME 86.9 fl (80.0-96.0); PLATELET COUNT, AUTOMATED 474 10^3/uL (150-450); WHITE BLOOD COUNT 16.4 10^3/uL (4.0-10.0)
[2020-02-28 14:28] LABS: ACETAMINOPHEN LEVEL < 2.0 UG/ML (10.0-30.0); ALBUMIN 4.7 GM/DL (3.2-5.2); ALT/SGPT 23 U/L (12-78); BILIRUBIN,DIRECT 0.1 MG/DL (0.0-0.2); BILIRUBIN,TOTAL 0.6 MG/DL (0.2-1.0); BLOOD UREA NITROGEN 31 MG/DL (7-18); CALCIUM LEVEL 10.2 MG/DL (8.5-10.1); CARBON DIOXIDE LEVEL 31 MEQ/L (21-32); CHLORIDE LEVEL 98 MEQ/L (98-107); CK-MB VALUE MASS 3.3 NG/ML (<3.6); CPK CREATINE PHOSPHOKINASE 379 U/L (26-192); CREATININE FOR GFR 1.15 MG/DL (0.55-1.30); ETHYL ALCOHOL (ETHANOL) < 0.003 % (0.000-0.010); GLOMERULAR FILTRATION RATE 59.4 (>60); GLUCOSE, FASTING 132 MG/DL (70-100); MB/CK RELATIVE INDEX 0.87 (< OR =4); POTASSIUM SERUM 3.6 MEQ/L (3.5-5.1); SALICYLATE LEVEL < 1.7 MG/DL (5.0-30.0); SODIUM LEVEL 139 MEQ/L (136-145); THYROID STIMULATING HORMONE 0.369 uIU/ML (0.358-3.740); TOTAL PROTEIN 8.9 GM/DL (6.4-8.2); TROPONIN I < 0.02 NG/ML (< 0.10)
[2020-02-28 14:50] LABS: AMPHETAMINES LEVEL URINE NEGATIVE (NEGATIVE); BARBITURATES URINE NEGATIVE (NEGATIVE); BENZODIAZEPINES URINE NEGATIVE (NEGATIVE); CANNABINOIDS URINE NEGATIVE (NEGATIVE); COCAINE METABOLITE URINE NEGATIVE (NEGATIVE); METHADONE URINE NEGATIVE (NEGATIVE); OPIATES URINE NEGATIVE (NEGATIVE); PHENCYCLIDINE URINE NEGATIVE (NEGATIVE)
[2020-02-28] MEDS ORDERED: REGL10TA6 PO ×2 (15:20→16:02)
[2020-02-28 16:03] VITALS: BP 120/78
--- NOTE | 2020-03-01 09:19 | ECGEPIP ---
[facility] - ED Test Date: 2020-02-28 Pat Name: ONUR MCCARTHY Department: Room: - Gender: Female Information Technology Assistant: FABIOLA : 1990 Requested By: ILEANA TRIANA Order Number: [id number] Reading MD: Bassem Bar Measurements Intervals [place] Rate: 88 P: 75 MA: 124 QRS: 89 QRSD: 78 T: 89 QT: 372 QTc: 452 Interpretive Statements SINUS RHYTHM MODERATE T-WAVE ABNORMALITY, CONSIDER ANTERIOR ISCHEMIA Electronically Signed on 03-01-2020 9:19:18 EST by Bassem Bar
== END 2020-02-28 16:36 | disposition home or self-care (01) ==
LOC: EDBD 13:08 → M ED 13:08
DX: F19.188 Other psychoactive substance abuse with other psychoactive substance-induced disorder (principal); R11.2 Nausea with vomiting, unspecified; R94.31 Abnormal electrocardiogram [ECG] [EKG]; F17.210 Nicotine dependence, cigarettes, uncomplicated; Z79.899 Other long term (current) drug therapy; Z88.0 Allergy status to penicillin; Z91.018 Allergy to other foods
CPT/HCPCS: 80048; 80076; 80307; 82550; 82553; 84443; 84484; 84703; 85027; 93005; 96374; 96376; 99284; G0480; J2405

== ENCOUNTER 2020-03-01 09:16 | Inpatient (IN) | payer MEDICAID, OTHER ==
[~2020-03-01] VITALS: Ht 162.6 cm; Wt 40.0 kg
[~2020-03-01 09:16] MED LIST changes: +REGL10TA6 PO; +THIAMINE 200MG/2ML VIAL (J3411 PER 100MG) IV SCH
[2020-03-01] MEDS ORDERED: NS 1,000 ML IV ONE ×2 (09:45→12:15)
[2020-03-01] MEDS ORDERED: LIDOCAINE 2% 5ML JELLY UROJET TOP ONE (10:00)
[2020-03-01] MEDS ORDERED: ONDANSETRON 4MG/2ML VIAL IV ONE (10:00)
--- NOTE | 2020-03-01 10:14 | REP ---
INDICATION: Altered Mental Status. Dizziness and nausea. COMPARISON: Comparison chest x-ray July 17, 2015. TECHNIQUE: Single AP sitting portable view. FINDINGS: Monitoring electrodes are noted. The lungs are well inflated and clear. An azygos lobe is noted in the right apex unchanged. This is a normal variant. Pleural angles are sharp. Pulmonary vasculature is not increased. Heart is not enlarged. No bony abnormality is seen. IMPRESSION: Negative portable chest x-ray. <Electronically signed by Pratik Carroll > 03/01/20 [id number]
[2020-03-01] MEDS ORDERED: LevoFLOXacin IV 500 MG in IV 1 EA IV ONE (10:15)
[2020-03-01] MEDS ORDERED: VANCOMYCIN HCL 750 MG, VIAL MATE ADAPTER 1 EACH in D5W 250 ML IV SCH (10:15)
[2020-03-01 10:19] LABS: BASO % 0.2 % (0.0-1.0); HEMATOCRIT 52.6 % (36.0-47.0); LYMPH # 1.6 10^3/uL (1.5-5.0); LYMPH % 6.8 % (24.0-44.0); MEAN CORPUSCULAR HEMOGLOBIN 28.9 pg (27.0-33.0); MEAN CORPUSCULAR HGB CONC 34.6 g/dl (32.0-36.5); MEAN CORPUSCULAR VOLUME 83.5 fl (80.0-96.0); MONO # 1.3 10^3/uL (0.0-0.8); MONO % 5.7 % (0.0-5.0); NEUTROPHILS % 86.6 % (36.0-66.0); PLATELET COUNT, AUTOMATED 644 10^3/uL (150-450); WHITE BLOOD COUNT 23.1 10^3/uL (4.0-10.0)
[2020-03-01] MEDS ORDERED: VANCOMYCIN HCL 750 MG, VIAL MATE ADAPTER 1 EACH in D5W 250 ML IV ONE (10:26)
[2020-03-01] MEDS ORDERED: CEFEPIME HCL 1 GM in D5W MINI-BAG PLUS 50 ML IV ONE (10:30)
[2020-03-01 10:31] LABS: HEMOGLOBIN 18.2 g/dl (12.0-15.5)
[2020-03-01 10:57] LABS: ACETAMINOPHEN LEVEL < 2.0 UG/ML (10.0-30.0); ALBUMIN 5.6 GM/DL (3.2-5.2); ALT/SGPT 84 U/L (12-78); BILIRUBIN,DIRECT 0.9 MG/DL (0.0-0.2); ETHYL ALCOHOL (ETHANOL) 0.003 % (0.000-0.010); FREE T4 1.72 NG/DL (0.76-1.46); LIPASE 576 U/L (73-393); MAGNESIUM LEVEL 3.8 MG/DL (1.8-2.4); PHOSPHORUS LEVEL 12.6 MG/DL (2.5-4.9); SALICYLATE LEVEL < 1.7 MG/DL (5.0-30.0); TOTAL PROTEIN 10.3 GM/DL (6.4-8.2)
--- NOTE | 2020-03-01 11:00 | ECGEPIP ---
[facility] - ED Test Date: 2020-03-01 Pat Name: ONUR MCCARTHY Department: Room: - Gender: Female Emergency Department Aide: jenifer : 1990 Requested By: ADOLFO RODRIGUEZ Order Number: [id number] Reading MD: Bassem Bar Measurements Intervals [place] Rate: 114 P: 89 [place]: 116 QRS: 88 QRSD: 77 T: -81 QT: 295 QTc: 407 Interpretive Statements SINUS TACHYCARDIA WITH SHORT WY INTERVAL POSSIBLE LEFT ATRIAL ENLARGEMENT POOR R WAVE PROGRESSION NSTTW ABNORMALITY(S) SIMILAR TO 02/28/20 Electronically Signed on 03-01-2020 10:59:36 EST by Bassem Bar
--- NOTE | 2020-03-01 11:24 | REP ---
INDICATION: dyspnea. COMPARISON: AP portable chest 03/01/2020 TECHNIQUE: Noncontrast chest CT with coronal and sagittal reconstructions provided. FINDINGS: The lung graham are quite well inflated. There is bilateral basilar fibro atelectatic change anteriorly in the lateral basal segment of the right lower lobe and left lower lobes. These are just behind the fissure on both sides. This is 3.7 mm noncalcified nodule superior segment of the right lower lobe on image 56. An azygos lobe fissure is noted in the medial right apex as anatomic variation. No acute infiltrate pleural effusion pleural thickening or pleural based mass there is no pneumothorax or pneumomediastinum. The heart is not enlarged and there is no pericardial thickening or effusion I see no pathologic sized mediastinal or hilar adenopathy. The aorta is without aneurysm there is no axillary or supraclavicular mass evident bone windows show sternum, manubrium, medial clavicles, visualized portions of scapulae, humeral heads and the ribs without fracture or focal lesion. Spine shows a mild dextroconvex curvature without compression deformity or focal lesion. The upper abdomen shows no evidence of a hiatal hernia but the stomach is distended with retained fluid in the limited portion included in this exam. Please see the abdomen CT for full discussion abdominal contents IMPRESSION: 1. Some fibroatelectatic change in the anterior aspects of lateral basal segments right and left lower lobes in a symmetric fashion without infiltrate, effusion parenchymal mass, pleural thickening or pneumothorax. 2. Lungs are well inflated with heart and mediastinal structures unremarkable. No acute bony finding. <Electronically signed by Daniel Rivas > 03/01/20 112
--- NOTE | 2020-03-01 11:41 | REP ---
INDICATION: mid gastric abdominal pain. COMPARISON: CT chest today. TECHNIQUE: Noncontrast scanning through the abdomen and pelvis with coronal and sagittal reconstructions. FINDINGS: The upper abdomen shows a massively distended stomach which has maximum diameters of 26.4 cm vertically by 16.1 transverse by 6.7 cm AP. Small air-fluid level within the massively distended stomach. I do not see perforation or free air in the abdomen or pelvis. Most bowel loops are fluid-filled with the exception of some colon loops in the lower pelvis. There is also some fluid seen in the duodenum proximally. It appears distended to its approach to midline. Liver and spleen are without focal lesion. There is no biliary dilatation or ascites. No solid mass or adenopathy. No small bowel dilatation or sign of obstruction. Kidneys show no stone, hydronephrosis, mass or cyst. Bony lumbar lower thoracic spine are unremarkable. Visualized ribs intact. CT pelvis: Sacrum, SI joints pelvis and hips show no acute finding there is sacralization of transverse prostheses of the L5 as anatomic variation. Bladder only partially filled. The distended stomach abuts the dome of the bladder. Uterus is not enlarged. No pelvic mass or visible adenopathy. No free fluid. No ventral or inguinal hernia. IMPRESSION: 1. Massively distended stomach extending over 26 cm vertically by 16 cm transverse. There also appears to be fluid in the proximal duodenum as it extends toward the midline, this suggests gastric/duodenal outflow obstruction. There is no dilatation of the small bowel loops or the colon in this patient. No perforation or free air. This could be obstruction at the passage of the duodenum underneath the SMA or ulcer disease or other. 2. There are no other significant findings in the abdomen or pelvis on this noncontrast exam. <Electronically signed by Daniel Rivas > 03/01/20 [id number]
[2020-03-01 12:27] LABS: AMPHETAMINES LEVEL URINE NEGATIVE (NEGATIVE); BARBITURATES URINE NEGATIVE (NEGATIVE); BENZODIAZEPINES URINE NEGATIVE (NEGATIVE); CANNABINOIDS URINE NEGATIVE (NEGATIVE); COCAINE METABOLITE URINE NEGATIVE (NEGATIVE); METHADONE URINE NEGATIVE (NEGATIVE); OPIATES URINE POSITIVE (NEGATIVE); PHENCYCLIDINE URINE NEGATIVE (NEGATIVE)
[2020-03-01] MEDS ORDERED: NS 1,000 ML IV SCH (13:30)
[2020-03-01] MEDS ORDERED: HEPARIN SOD (PORCINE) 5000UNITS/ML 1ML VIAL/SYRINGE SC SCH (14:00)
[2020-03-01] MEDS ORDERED: VANCOMYCIN HCL 1,000 MG in IV FLUID PLACE HOLDER 1 EA IV SCH (14:45)
[2020-03-01 15:11] LABS: HEMATOCRIT 36.9 % (36.0-47.0); HEMOGLOBIN 12.8 g/dl (12.0-15.5); MEAN CORPUSCULAR HEMOGLOBIN 30.2 pg (27.0-33.0); MEAN CORPUSCULAR HGB CONC 34.7 g/dl (32.0-36.5); PLATELET COUNT, AUTOMATED 349 10^3/uL (150-450); RED BLOOD COUNT 4.24 10^6/uL (4.00-5.40)
[2020-03-01 15:25] LABS: ALBUMIN 3.6 GM/DL (3.2-5.2); BILIRUBIN,TOTAL 1.8 MG/DL (0.2-1.0); CALCIUM LEVEL 7.6 MG/DL (8.5-10.1); CALCIUM LEVEL 7.8 MG/DL (8.5-10.1); CREATININE FOR GFR 2.7 MG/DL (0.55-1.30); CREATININE FOR GFR 2.72 MG/DL (0.55-1.30); GLOMERULAR FILTRATION RATE 22.2 (>60); MAGNESIUM LEVEL 2.7 MG/DL (1.8-2.4); POTASSIUM SERUM 2.8 MEQ/L (3.5-5.1); POTASSIUM SERUM 2.9 MEQ/L (3.5-5.1); TOTAL PROTEIN 6.4 GM/DL (6.4-8.2)
[2020-03-01] MEDS ORDERED: VANCOMYCIN INTERMITTENT/PULSE DOSING BY CLINICAL PHARMACIST PER DOSING PROTOCOL XX SCH (15:30)
[2020-03-01 15:54] LABS: HEPATITIS A ANTIBODY IGM NEGATIVE (NEGATIVE); HEPATITIS B CORE ANTIBODY IGM NEGATIVE (NEGATIVE); HEPATITIS B SURFACE ANTIGEN NEGATIVE (NEGATIVE); HEPATITIS C VIRUS ABY INDEX 0.1 INDEX (<0.8); HIV 1&2 SCREEN CENTAUR NEGATIVE (NEGATIVE)
[2020-03-01] MEDS ORDERED: HYDROmorphone HCL 2 MG/ML 1ML VIAL (J1170) IV PRN (16:00)
[2020-03-01] MEDS ORDERED: PANTOPRAZOLE 40MG VIAL (C9113 PER 1) IV ONE (16:00)
[2020-03-01 16:10] VITALS: BP 113/63
[2020-03-01] MEDS ORDERED: FOLIC ACID 1 MG in NS 50 ML IV SCH (17:00)
[2020-03-01] MEDS ORDERED: KCL 10MEQ/100ML SWI (KRUN) 10 MEQ in IV 1 EA IV SCH (17:00)
--- NOTE | 2020-03-01 17:08 | REP ---
INDICATION: history of drug abuse. COMPARISON: CT without contrast 03/01/2020, ultrasound 09/14/2013 TECHNIQUE: Sonographic evaluation of the right upper quadrant standard technique. FINDINGS: Sonographic evaluation of right upper quadrant shows the liver homogeneous in echo texture and without focal hepatic mass nor intrahepatic biliary dilatation. There is no adjacent ascites or hepatic calcifications. The gallbladder is partially contracted without visible calcified stone, mass or definite wall thickening. There is a 3 mm echogenic focus without shadowing consistent with a polyp as seen on the 2013 study. Common duct is 3 mm without dilatation or filling defect. Visualized pancreas shows no mass, ductal dilatation or adjacent fluid collection. Right kidney measures 11.7 x 6.1 x 3.8 cm. There is mild dilatation of the renal pelvis, no visible mass or stone. IMPRESSION: 1. Liver and pancreas unremarkable and there is no ascites. 2. Gallbladder partially contracted with a 3 mm echogenic non-shadowing focus representing a polyp as seen on the 2013 ultrasound. 3. Common duct 3 mm and normal. 4. The right kidney normal size with mildly dilated renal pelvis, no other significant finding. <Electronically signed by Daniel Rivas > 03/01/20 [id number]
--- NOTE | 2020-03-01 17:18 | HPEPDOC ---
General Date of Admission Mar 01, 2020 at 13:55 Date of Service: Mar 01, 2020 Attending Physician: BAILEY MCFARLANE MD Chief Complaint The patient is a 29-year-old female admitted with a reason for visit of Sepsis Bowel Obstruction. History of Present Illness History of present illness: Mrs. Horne is a 29-year-old female who presented to the emergency department with nausea, vomiting, dizziness, abnormal pain. She reports having about 50 episodes of vomiting and last 24 hours, the vomitus is green in color without blood, couldn't put anything down and her last meal per patient is Saturday night, she states having nausea and dizziness since 3 days, she denies having any loss of consciousness, falls. She says she has frontal headache and took 3 Tylenol in total. She also reports having shortness of breath which is been going on since 3 weeks. She reports having some burning sensation when passing urine and abdominal pain as well. She reports being in long-term for 5 days and is out of long-term on Saturday, she has a history of illicit drug use (smoking heroin, freedom) she reports she is clean since last 5 days. Past medical history: Asthma Chlamydia infection As per patient she was never hospitalized. Past surgical history: Tonsillectomy at age 10. Social history: Patient smokes cigarettes about a pack a day since age 16, also reports smoking heroin every day her last dose was 5 days ago. she also takes Freedom last dose was 5 days ago. She denies alcohol use. She is sexually active and lives with her boyfriend. She denied any contraception use. Family History: Father: heart problems. 3 siblings: doing well. REVIEW OF SYSTEMS: Constitutional: reports feeling cold but never took her temperature,no night sweats, weight loss. Eyes: Denies any blurry vision or double vision. ENT: Denies any dysphagia, odynophagia, ear discharge. Cardiovascular: Report chest pain radiating to left shoulder. Respiratory: Denies shortness of breath and cough. Gastrointestinal (GI): Reports nausea and vomiting. Genitourinary: Reports dysuria. Musculoskeletal: Denies any muscle aches and pains. Skin: Denies any rashes or ulcers. Hematology/Oncology: Denies any easy bleeding or bruising. Endocrine: Denies cold intolerance, heat intolerance, polydipsia, polyphagia, polyuria All other review of systems is negative. PHYSICAL EXAMINATION: Vital Signs: Temperature: Pulse: RR: BP: Oxygen saturation %: General: Patient is awake, alert, oriented times three, lying in bed , in mild apparent distress. Eyes: Conjunctiva clear, pupils equal round and reactive to light and a ccommodation. ENT: Hearing Bilateral normal. No nasal deviation, She has caries tooth on both sides lower and upper molars. Oropharynx clear with no lesions/erythema. Neck: supple, no masses, trachea midline, no thyroid nodules, masses, tenderness or enlargement. Cardiovascular: S1, S2, normal rhythm, no murmur, rub, or gallop Respiratory: Chest is clear to auscultation bilaterally. No rhonchi, wheezes or rubs. Abdomen: Soft, hyperactive bowel sounds, no bruits. Tenderness in epigastric region and LLQ region on palpation. Extremities: No clubbing or cyanosis. No edema, no tenderness. 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 Skin: She has redness in b/l knee, no pain. bruises noted in elbow. Assessment: 29-year-old female patient who has presented to the ED with nausea, severe vomiting, dizziness. Workup in ED visit CT abdomen showed bowel obstruction. Plan: 1. Sepsis 2/2 bowel obstruction: - Likely gastric outlet obstruction is due to peptic ulcer disease vs duodenitis vs lymphoma. - Her sepsis is likely due to obstruction vs UTI vs drug abuse, will start her on broad spectrum antibiotics vancomycin and cefepime. will deescalated antibiotics just on her cultures and sensitivity. - Blood cultures drawn, urine sent for culture. - Keep her NPO and IV fluids 150ml/hr. - NG tube in place she has an put output 1800cc through NG tube up till 2pm. - Surgery consult in place, Dr. Dove is aware of the case, will appreciate there input and will follow there recommendations. - Will get here BMP every 8hrs, and monitor the electrolytes closely. 2. Acute Kidney injury. - Kidney injury is mostly likely prerenal, due to dehydration. - She got a 2liters of bolus in ED. will give her fluids at rate of 150mls/hr. - Her BUN is 73 and creatinine 4.8. - will get urine cast to rule out acute tubular necrosis. 3. Lactate acidosis type A: - Due to dehydration, will continue giving her fluids. - will trend lactate. 3. Illicit drug abuse: - And has a history of heroine abuse, and freedom. Last dose was 5 days ago up till then use everyday. - Monitor for withdrawal symptoms flu like symptoms, tachycardia, anxiety, agitations, yawning, restlessness. - will start on Dilaudid 1mg iv Q6h PRN. 4. Hemoconcentration: - Due to dehydration. - will give her fluids and repeat labs. 5. Hyperkalemia: - Her potassium in ED was 3.1, but her repeat K is 2.8, - Will give [place] 10meq x 3 IV. - Check her potassium after supplementation and give her more if needed. 6. Sexually transmitted diseases: - will check for HIV as she reports losing lot of weight recently. - Elevated transaminases will get hepatitis panel. - will get a liver us to rule-out any inflammation. Home Medications No Active Prescriptions or Reported Meds Allergies Coded Allergies: Penicillins (Verified Allergy, Unknown, 08/07/18) amoxicillin (Verified Allergy, Unknown, 08/07/18) TURKEY (Verified Adverse Reaction, Mild, FACE TINGLES, 01/19/17) A-FIB/CHADSVASC A-FIB History Current/History of A-Fib/PAF?: No Current PO Anticoag Therapy: No Vital Signs Vital Signs Date Time Temp Pulse Resp B/P (MAP) Pulse Ox O2 Delivery O2 Flow Rate FiO2 03/01/20 13:45 88 18 131/73 (92) 100 Room Air 03/01/20 09:17 97.4 Laboratory Data Labs 24H Laboratory Tests 2 03/01/20 09:40: Immature Granulocyte % (Auto) 0.7, Neutrophils (%) (Auto) 86.6H, Lymphocytes (%) (Auto) 6.8L, Monocytes (%) (Auto) 5.7H, Eosinophils (%) (Auto) 0.0, Basophils (%) (Auto) 0.2, Neutrophils # (Auto) 20.0H, Lymphocytes # (Auto) 1.6, Monocytes # (Auto) 1.3H, Eosinophils # (Auto) 0.0, Basophils # (Auto) 0.0, Nucleated Red Blood Cells % (auto) 0.0, Phosphorus Level 12.6H, Magnesium Level 3.8H, Total Bilirubin 2.0#H, Direct Bilirubin 0.9H, Aspartate Amino Transf (AST/SGOT) 102H, Alanine Aminotransferase (ALT/SGPT) 84H, Alkaline Phosphatase 144H, Total Protein 10.3H, Albumin 5.6H, Albumin/Globulin Ratio 1.2, Lipase 576H, Thyroid Stimulating Hormone (TSH) 10.300H, Free Thyroxine 1.72H, Salicylates Level < 1.7L, Acetaminophen Level < 2.0L, Ethyl Alcohol Level 0.003 03/01/20 09:51: Bedside Glucose (Misc Panel) 212H 03/01/20 09:52: POC Glucose (Misc Panel) 191H, POC Sodium (Misc Panel) 128L, POC Potassium (Misc Panel) 3.1L, POC Chloride (Misc Panel) 74L, POC Total CO2 (Misc Panel) 40.0H, POC Blood Urea Nitrogen (Misc Panel 73H, POC Ionized Calcium (Misc Panel) 3.3*L, POC Lactate (Misc Panel) 5.26*H, POC Creatinine (Misc Panel) 4.8H, POC Hematoc rit (Misc Panel) 56.0H 03/01/20 09:55: POC Troponin I (Misc) 0.05, POC Beta HCG, Quantitative < 5.0 03/01/20 10:47: Methicillin-Resist S.aureus DNA PCR DETECTEDA 03/01/20 10:53: POC pH (Misc Panel) 7.599H, POC Base Excess (Misc Panel) 9.0H, POC Saturated Percent O2 (Misc) 99H, POC pO2 (Misc Panel) 102.0, POC pCO2 (Misc Panel) 31.6L, POC HCO3 (Misc Panel) 30.9H, POC Total CO2 (Misc Panel) 32.0H 03/01/20 11:17: Urine Color YELLOW, Urine Appearance CLOUDYH, Urine pH 6.0, Urine Specific [place] 1.018, Urine Protein 2+H, Urine Glucose (UA) 1+H, Urine Ketones NEGATIVE, Urine Blood 2+H, Urine Nitrite NEGATIVE, Urine Bilirubin NEGATIVE, Urine Urobilinogen 0.2, Urine Leukocyte Esterase 2+H, Urine WBC (Auto) 97H, Urin e RBC (Auto) 35H, Urine Hyaline Casts (Auto) 77, Urine Bacteria (Auto) 1+H, Urine Squamous Epithelial Cells 4, Urine Transitional Epithelial Cells 1, Urine Amorphous Sediment SMALLH, Urine Mucus (Auto) MODERATE, Urine Sperm (Auto) , Urine Opiates Screen POSITIVEH, Urine Methadone Screen NEGATIVE, Urine Barbiturates Screen NEGATIVE, Urine Phencyclidine Screen NEGATIVE, Urine Amphetamines Screen NEGATIVE, Urine Benzodiazepines Screen NEGATIVE, Urine Cocaine Metabolite Screen NEGATIVE, Urine Cannabinoids Screen NEGATIVE CBC/BMP Laboratory Tests 03/01/20 09:40 Microbiology Microbiology 03/01/20 Urine Culture, Received Pending 03/01/20 Blood Culture, Received Pending 03/01/20 Blood Culture, Received Pending Plan / VTE VTE Prophylaxis Ordered?: Yes Percy Tovar MD Mar 01, 2020 15:11
--- NOTE | 2020-03-01 18:14 | IPNPDOC ---
Date Seen The patient was seen on 03/01/20. Progress Note Nursing staff notified providers that patient was requesting to leave AGAINST MEDICAL ADVICE. Reportedly the patient was found to have what appeared to be drug paraphernalia on her in the ED. After being brought to the ICU she had additional paraphernalia on her which was confiscated by security. The patient stated that she would like to leave AMA because her grandmother had . On further questioning she did reveal that she needs her medication to feel good. The patient was counseled at extensive length regarding the severity of her illness and high risk of if left untreated. Patient was advised on the risks of leaving AMA including high risk of , cardiac arrest, renal failure, and worsening of her gastric outlet obstruction. Patient voiced understanding and comprehension of her risk of leaving AMA and stated that she will return in an hour or so. Patient signed AMA paperwork and walked out of ICU and hospital Disposition: Given patients critical illness prognosis is guarded/poor if she does not seek medical attention. Patient will likely require emergent medical assistance within 24 hours or sooner VS, I&O, 24H, [facility] Vital Signs/I&O Vital Signs Date Time Temp Pulse Resp B/P (MAP) Pulse Ox O2 Delivery O2 Flow Rate FiO2 03/01/20 15:36 98 18 100 Room Air 03/01/20 15:35 98.4 130/73 (92) Laboratory Data 24H LABS Laboratory Tests 2 03/01/20 09:40: Immature Granulocyte % (Auto) 0.7, Neutrophils (%) (Auto) 86.6H, Lymphocytes (%) (Auto) 6.8L, Monocytes (%) (Auto) 5.7H, Eosinophils (%) (Auto) 0.0, Basophils (%) (Auto) 0.2, Neutrophils # (Auto) 20.0H, Lymphocytes # (Auto) 1.6, Monocytes # (Auto) 1.3H, Eosinophils # (Auto) 0.0, Basophils # (Auto) 0.0, Nucleated Red Blood Cells % (auto) 0.0, Phosphorus Level 12.6H, Magnesium Level 3.8H, Total Bilirubin 2.0#H, Direct Bilirubin 0.9H, Aspartate Amino Transf (AST/SGOT) 102H, Alanine Aminotransferase (ALT/SGPT) 84H, Alkaline Phosphatase 144H, Total Protein 10.3H, Albumin 5.6H, Albumin/Globulin Ratio 1.2, Lipase 576H, Thyroid Stimulating Hormone (TSH) 10.300H, Free Thyroxine 1.72H, Salicylates Level < 1.7L, Acetaminophen Level < 2.0L, Ethyl Alcohol Level 0.003 03/01/20 09:51: Bedside Glucose (Misc Panel) 212H 03/01/20 09:52: POC Glucose (Misc Panel) 191H, POC Sodium (Misc Panel) 128L, POC Potassium (Misc Panel) 3.1L, POC Chloride (Misc Panel) 74L, POC Total CO2 (Misc Panel) 40.0H, POC Blood Urea Nitrogen (Misc Panel 73H, POC Ionized Calcium (Misc Panel) 3.3*L, POC Lactate (Misc Panel) 5.26*H, POC Creatinine (Misc Panel) 4.8H, POC Hematocrit (Misc Panel) 56.0H 03/01/20 09:55: POC Troponin I (Misc) 0.05, POC Beta HCG, Quantitative < 5.0 03/01/20 10:47: Methicillin-Resist S.aureus DNA PCR DETECTEDA 03/01/20 10:53: POC pH (Misc Panel) 7.599H, POC Base Excess (Misc Panel) 9.0H, POC Saturated Percent O2 (Misc) 99H, POC pO2 (Misc Panel) 102.0, POC pCO2 (Misc Panel) 31.6L, POC HCO3 (Misc Panel) 30.9H, POC Total CO2 (Misc Panel) 32.0H 03/01/20 11:17: Urine Color YELLOW, Urine Appearance CLOUDYH, Urine pH 6.0, Urine Specific [place] 1.018, Urine Protein 2+H, Urine Glucose (UA) 1+H, Urine Ketones NEGATIVE, Urine Blood 2+H, Urine Nitrite NEGATIVE, Urine Bilirubin NEGATIVE, Urine Urobilinogen 0.2, Urine Leukocyte Esterase 2+H, Urine WBC (Auto) 97H, Urine RBC (Auto) 35H, Urine Hyaline Casts (Auto) 77, Urine Bacteria (Auto) 1+H, Urine Squamous Epithelial Cells 4, Urine Transitional Epithelial Cells 1, Urine Amorphous Sediment SMALLH, Urine Mucus (Auto) MODERATE, Urine Sperm (Auto) , Urine Opiates Screen POSITIVEH, Urine Methadone Screen NEGATIVE, Urine Barbiturates Screen NEGATIVE, Urine Phencyclidine Screen NEGATIVE, Urine Ampheta mines Screen NEGATIVE, Urine Benzodiazepines Screen NEGATIVE, Urine Cocaine Metabolite Screen NEGATIVE, Urine Cannabinoids Screen NEGATIVE 03/01/20 14:28: Nucleated Red Blood Cells % (auto) 0.0, Anion Gap 9, Glomerular Filtration Rate 22.0L, Lactic Acid Followup at 4 Hours 1.3, Calcium Level 7.8#L, Magnesium Level 2.7H, Total Bilirubin 1.8H, Aspartate Amino Transf (AST/SGOT) 65H, Alanine Aminotransferase (ALT/SGPT) 59, Alkaline Phosphatase 93, Total Protein 6.4#, Albumin 3.6#, Albumin/Globulin Ratio 1.3, Procalcitonin 0.17, Hepatitis A IgM Antibody NEGATIVE, Hepatitis B Surface Antigen NEGATIVE, Hepatitis B Core IgM Antibody NEGATIVE, Hepatitis C Antibody Index 0.1, HIV Antigen/Antibody Combo Qual NEGATIVE CBC/BMP Laboratory Tests 03/01/20 09:40 03/01/20 14:28 Microbiology Microbiology 03/01/20 Urine Culture, Received Pending 03/01/20 Blood Culture, Received Pending 03/01/20 Blood Culture, Received Pending JEANMARIE CROWLEY DO Mar 01, 2020 18:13
[2020-03-01] MEDS ORDERED: CEFEPIME HCL 1 GM in D5W MINI-BAG PLUS 50 ML IV SCH (22:00)
== END 2020-03-01 17:00 | disposition left against medical advice (07) | DRG 720 ==
LOC: M ED 09:16 → EDBEDREQSVC 12:03 → EEVIPCON 13:55 → M ED INP 13:55 → ENRESERV 14:01 → M ICU 15:47
PROVIDERS: ADMIT Internal Medicine; ATTEND Internal Medicine
DX: A41.9 Sepsis, unspecified organism (principal); N17.9 Acute kidney failure, unspecified; K56.609 Unspecified intestinal obstruction, unspecified as to partial versus complete obstruction; E87.2 Acidosis; E87.5 Hyperkalemia; F17.210 Nicotine dependence, cigarettes, uncomplicated; E86.0 Dehydration; F14.10 Cocaine abuse, uncomplicated; F11.90 Opioid use, unspecified, uncomplicated; Z88.0 Allergy status to penicillin; Z88.8 Allergy status to other drugs, medicaments and biological substances; Z91.018 Allergy to other foods

== ENCOUNTER 2020-04-27 20:02 | Inpatient (IN) | payer OTHER ==
[~2020-04-27] VITALS: Ht 160 cm; Wt 47.2 kg
[~2020-04-27 20:02] MED LIST changes: -THIAMINE 200MG/2ML VIAL (J3411 PER 100MG) IV SCH
[2020-04-27] MEDS ORDERED: KETOROLAC 30 MG/ML 1ML VIAL IV ONE (20:30)
[2020-04-27] MEDS ORDERED: NS 1,000 ML IV ONE (20:30)
[2020-04-27] MEDS ORDERED: CLINDAMYCIN 600 MG in IV 1 EA IV ONE (20:30)
[2020-04-27] MEDS: DOCUSATE SODIUM 100MG CAPSULE PO SCH (21:00)
[2020-04-27 21:03] LABS: BASO % 0.2 % (0.0-1.0); EOS # 0.2 10^3/uL (0.0-0.5); EOS % 1.9 % (0.0-3.0); HEMATOCRIT 40.8 % (36.0-47.0); HEMOGLOBIN 12.8 g/dl (12.0-15.5); LYMPH # 1.7 10^3/uL (1.5-5.0); LYMPH % 19.7 % (24.0-44.0); MEAN CORPUSCULAR HGB CONC 31.4 g/dl (32.0-36.5); MEAN CORPUSCULAR VOLUME 89.3 fl (80.0-96.0); MONO # 0.5 10^3/uL (0.0-0.8); MONO % 5.8 % (0.0-5.0); NEUTROPHILS % 71.9 % (36.0-66.0); PLATELET COUNT, AUTOMATED 348 10^3/uL (150-450); RED BLOOD COUNT 4.57 10^6/uL (4.00-5.40); WHITE BLOOD COUNT 8.4 10^3/uL (4.0-10.0)
[2020-04-27 21:20] LABS: INR 1.05; PROTHROMBIN TIME 13.9 SECONDS (12.5-14.3)
[2020-04-27 21:29] LABS: HCG, SERUM QUALITATIVE NEGATIVE (NEGATIVE)
[2020-04-27 21:33] LABS: ALBUMIN 3.5 GM/DL (3.2-5.2); ALT/SGPT 14 U/L (12-78); AMYLASE 75 U/L (25-115); BILIRUBIN,DIRECT 0.1 MG/DL (0.0-0.2); BILIRUBIN,TOTAL 0.3 MG/DL (0.2-1.0); BLOOD UREA NITROGEN 10 MG/DL (7-18); C REACTIVE PROTEIN QUANTITATIV 1.74 MG/DL (0.00-0.30); CALCIUM LEVEL 9.1 MG/DL (8.5-10.1); CARBON DIOXIDE LEVEL 28 MEQ/L (21-32); CHLORIDE LEVEL 107 MEQ/L (98-107); CREATININE FOR GFR 0.62 MG/DL (0.55-1.30); GLOMERULAR FILTRATION RATE > 60.0 (>60); GLUCOSE, FASTING 116 MG/DL (70-100); POTASSIUM SERUM 4.5 MEQ/L (3.5-5.1); SODIUM LEVEL 140 MEQ/L (136-145); TOTAL PROTEIN 7.3 GM/DL (6.4-8.2)
[2020-04-27] MEDS ORDERED: ISOVUE-370 76% 100ML VIAL As Ordered ONE (21:36)
--- NOTE | 2020-04-27 22:26 | REPVR ---
PROCEDURE INFORMATION: Exam: CT Maxillofacial With Contrast Exam date and time: 04/27/2020 9:52 PM Age: 29 years old Clinical indication: Other: Open wound, right cheek TECHNIQUE: Imaging protocol: Computed tomography images of the face with intravenous contrast. Radiation optimization: All CT scans at this facility use at least one of these dose optimization techniques: automated exposure control; mA and/or kV adjustment per patient size (includes targeted exams where dose is matched to clinical indication); or iterative reconstruction. Contrast material: ISOVUE 370; Contrast volume: 75 ml; Contrast route: INTRAVENOUS (IV); COMPARISON: No relevant prior studies available. FINDINGS: Orbital cavity: No visualized acute intraorbital abnormality. Globes are unremarkable. Bones/joints: Mild retrolisthesis of the left C1 lateral mass on C2 within the upper cervical spine. Nasal septal deviation to the right. No visualized acute facial bone fracture. Paranasal sinuses: Mucosal thickening of the left sphenoid sinus. Mild mucosal thickening of the left maxillary sinus. Small mucous retention cysts or polyps within the right maxillary sinus. There is opacification of a few left posterior ethmoid air cells. Soft tissues: Left facial soft tissue swelling identified. There is a complex peripherally enhancing loculated collection of fluid within the left facial soft tissues. This measures 3.4 x 2.0 x 4.5 cm. This is concerning for abscess although necrotic malignancy is within the differential. This mass contacts the adjacent left masseter muscle. Lymph nodes: Borderline enlarged level 1 and level 2 cervical lymph nodes are identified. A right level 2 cervical lymph node measures 1.1 x 0.6 cm. IMPRESSION: 1. Left facial soft tissue swelling identified. There is a complex peripherally enhancing loculated collection of fluid within the left facial soft tissues. This measures 3.4 x 2.0 x 4.5 cm. This is concerning for abscess, although necrotic malignancy is within the differential. This mass contacts the adjacent left masseter muscle. Clinical correlation recommended. 2. Borderline enlarged level 1 and level 2 cervical lymph nodes are identified. 3. Mild retrolisthesis of the left C1 lateral mass on C2 within the upper cervical spine. 4. Additional findings described above. Findings are discussed with Dr Anderson , 04/27/2020 10:25 PM EST. The findings were acknowledged and understood. Electronically signed by: Bryan Stockton On 04/27/2020 22:26:16 PM
--- NOTE | 2020-04-27 22:28 | REPVR ---
PROCEDURE INFORMATION: Exam: XR Chest, 1 View Exam date and time: 04/27/2020 8:26 PM Age: 29 years old Clinical indication: Other: Sepsis and shock; Additional info: Sepsis/shock TECHNIQUE: Imaging protocol: XR of the chest Views: 1 view. COMPARISON: CT Chest without contrast 03/01/2020 10:37 AM FINDINGS: Tubes, catheters and devices: Leads overlie the chest. Lungs: There is no confluent infiltrate. The lungs are clear. Pleural space: No pneumothorax. No pleural effusions. Heart/Mediastinum: No cardiomegaly. Bones/joints: No acute osseous abnormality. IMPRESSION: No radiographic evidence of acute cardiopulmonary disease. Electronically signed by: Bryan Stockton On 04/27/2020 22:28:54 PM
[2020-04-28 00:04] LABS: RSV AMPLIFICATION NEGATIVE (NEGATIVE)
[2020-04-28] MEDS ORDERED: MOM 30ML SUSPENSION UDC PO PRN (00:15)
[2020-04-28] MEDS ORDERED: MAALOX 30 ML SUSP *UDC PO PRN (00:15)
[2020-04-28] MEDS ORDERED: NS 1,000 ML IV SCH (00:15)
[2020-04-28] MEDS: CIPROFLOXACIN 400 MG in IV 1 EA IV SCH ×2 (01:39→16:02)
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
[2020-04-28] MEDS ORDERED: CLINDAMYCIN 600 MG in IV 1 EA IV SCH (03:00)
[2020-04-28 05:07] VITALS: BP 116/78
[2020-04-28] MEDS: ACETAMINOPHEN TAB 650MG DOSE (2X325MG) PO PRN (05:41)
[2020-04-28] MEDS: CLINDAMYCIN 600 MG in IV 1 EA IV SCH ×3 (06:23→18:46)
[2020-04-28 07:23] LABS: INR 1.05; PROTHROMBIN TIME 13.9 SECONDS (12.5-14.3)
[2020-04-28 07:24] LABS: PARTIAL THROMBOPLASTIN TIME 29.3 SECONDS (24.2-38.5)
[2020-04-28 07:26] LABS: D-DIMER QUANT 523.53 ng/ml (<500)
[2020-04-28 07:39] LABS: C REACTIVE PROTEIN QUANTITATIV 1.23 MG/DL (0.00-0.30); CPK CREATINE PHOSPHOKINASE 35 U/L (26-192); FERRITIN 57 NG/ML (8-252); LDH LACTATE DEHYDROGENASE 136 U/L (84-246); TROPONIN I < 0.02 NG/ML (< 0.10)
[2020-04-28 08:00] VITALS: BP 108/57
[2020-04-28] MEDS: NICOTINE 7 MG/24 HR TRANSDERMAL TD SCH (09:00)
[2020-04-28] MEDS: DOCUSATE SODIUM 100MG CAPSULE PO SCH ×2 (10:03→20:34)
[2020-04-28 12:40] LABS: HEPATITIS B SURFACE ANTIBODY POSITIVE (POSITIVE); HEPATITIS B SURFACE ANTIGEN NEGATIVE (NEGATIVE); HEPATITIS C VIRUS ABY INDEX 0.2 INDEX (<0.8); HIV 1&2 SCREEN CENTAUR NEGATIVE (NEGATIVE)
[2020-04-28] MEDS: HEPARIN SOD (PORCINE) 5000UNITS/ML 1ML VIAL/SYRINGE SQ SCH ×2 (12:54→20:34)
[2020-04-28] MEDS ORDERED: PILL CUTTER 1 EACH XX PRN (14:30)
[2020-04-28 16:00] VITALS: BP 117/63
[2020-04-28] MEDS: HYDROmorphone 2 MG TAB PO PRN (16:02)
[2020-04-28 16:07] LABS: CHLAMYDIA DNA AMPLIFICATION POSITIVE (NEGATIVE); GC DNA AMPLIFICATION POSITIVE (NEGATIVE)
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
[2020-04-28 20:00] VITALS: BP 116/71
[2020-04-28] MEDS: HYDROmorphone 2 MG TAB PO SCH (20:34)
[2020-04-29] MEDS: CLINDAMYCIN 600 MG in IV 1 EA IV SCH ×3 (00:36→11:25)
[2020-04-29] MEDS: CIPROFLOXACIN 400 MG in IV 1 EA IV SCH (01:30)
[2020-04-29] MEDS: HYDROmorphone 2 MG TAB PO PRN ×3 (01:57→17:32)
[2020-04-29 04:00] VITALS: BP 102/69
[2020-04-29] MEDS: HEPARIN SOD (PORCINE) 5000UNITS/ML 1ML VIAL/SYRINGE SQ SCH ×3 (05:31→22:00)
[2020-04-29] MEDS: DOCUSATE SODIUM 100MG CAPSULE PO SCH ×2 (08:16→20:11)
[2020-04-29] MEDS: NICOTINE 7 MG/24 HR TRANSDERMAL TD SCH (08:16)
[2020-04-29] MEDS: HYDROmorphone 2 MG TAB PO SCH ×2 (08:16→20:12)
[2020-04-29 09:32] LABS: HEMATOCRIT 35.2 % (36.0-47.0); HEMOGLOBIN 11.8 g/dl (12.0-15.5); MEAN CORPUSCULAR HEMOGLOBIN 29.3 pg (27.0-33.0); MEAN CORPUSCULAR HGB CONC 33.5 g/dl (32.0-36.5); MEAN CORPUSCULAR VOLUME 87.3 fl (80.0-96.0); PLATELET COUNT, AUTOMATED 308 10^3/uL (150-450); RED BLOOD COUNT 4.03 10^6/uL (4.00-5.40); WHITE BLOOD COUNT 5.8 10^3/uL (4.0-10.0)
[2020-04-29 09:41] LABS: ALBUMIN 3.2 GM/DL (3.2-5.2); ALT/SGPT 13 U/L (12-78); BILIRUBIN,TOTAL 0.3 MG/DL (0.2-1.0); BLOOD UREA NITROGEN 5 MG/DL (7-18); CALCIUM LEVEL 9.1 MG/DL (8.5-10.1); CARBON DIOXIDE LEVEL 29 MEQ/L (21-32); CHLORIDE LEVEL 105 MEQ/L (98-107); CREATININE FOR GFR 0.66 MG/DL (0.55-1.30); GLOMERULAR FILTRATION RATE > 60.0 (>60); GLUCOSE, FASTING 108 MG/DL (70-100); MAGNESIUM LEVEL 2.3 MG/DL (1.8-2.4); POTASSIUM SERUM 4.3 MEQ/L (3.5-5.1); SODIUM LEVEL 140 MEQ/L (136-145); TOTAL PROTEIN 6.5 GM/DL (6.4-8.2)
[2020-04-29 12:00] VITALS: BP 120/84
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
[2020-04-29] MEDS ORDERED: cefTRIAXone SOD 2 GM in D5W MINI-BAG PLUS 50 ML IV ONE ×2 (13:30→15:00)
[2020-04-29] MEDS ORDERED: cefTRIAXone SOD 1GM VIAL (J0696 PER 250MG) IM SCH (13:30)
[2020-04-29] MEDS ORDERED: FLUID PLACE HOLDER IV SCH (14:15)
[2020-04-29] MEDS ORDERED: VANCOMYCIN HCL IV SCH (14:15)
[2020-04-29] MEDS ORDERED: metroNIDAZOLE (FLAGYL) 500MG TABLET PO ONE (15:00)
[2020-04-29] MEDS ORDERED: AZITHROMYCIN 250MG TABLET PO ONE (16:00)
[2020-04-29] MEDS ORDERED: RAMELTEON 8 MG TAB (ROZEREM) PO ONE (16:45)
[2020-04-29] MEDS ORDERED: VANCOMYCIN HCL 1,000 MG, VIAL MATE ADAPTER 1 EACH in D5W 250 ML IV ONE (17:00)
[2020-04-29 20:15] VITALS: BP 111/76
[2020-04-29] MEDS: ACETAMINOPHEN TAB 650MG DOSE (2X325MG) PO PRN (22:09)
[2020-04-30] MEDS: VANCOMYCIN HCL 750 MG, VIAL MATE ADAPTER 1 EACH in D5W 250 ML IV SCH ×2 (01:44→08:43)
[2020-04-30] MEDS: ACETAMINOPHEN TAB 650MG DOSE (2X325MG) PO PRN ×3 (01:44→11:21)
[2020-04-30] MEDS: HYDROmorphone 2 MG TAB PO PRN (02:53)
[2020-04-30 06:00] VITALS: BP 126/74
[2020-04-30] MEDS: HEPARIN SOD (PORCINE) 5000UNITS/ML 1ML VIAL/SYRINGE SQ SCH ×2 (06:00→09:00)
[2020-04-30 08:00] VITALS: BP 109/58
[2020-04-30 08:16] LABS: HEMATOCRIT 38.4 % (36.0-47.0); HEMOGLOBIN 12.6 g/dl (12.0-15.5); MEAN CORPUSCULAR HEMOGLOBIN 27.9 pg (27.0-33.0); MEAN CORPUSCULAR HGB CONC 32.8 g/dl (32.0-36.5); PLATELET COUNT, AUTOMATED 353 10^3/uL (150-450); RED BLOOD COUNT 4.52 10^6/uL (4.00-5.40); WHITE BLOOD COUNT 6.2 10^3/uL (4.0-10.0)
[2020-04-30] MEDS: DOCUSATE SODIUM 100MG CAPSULE PO SCH (08:44)
[2020-04-30] MEDS: NICOTINE 7 MG/24 HR TRANSDERMAL TD SCH (08:44)
[2020-04-30] MEDS: HYDROmorphone 2 MG TAB PO SCH (08:45)
[2020-04-30 08:56] LABS: BLOOD UREA NITROGEN 12 MG/DL (7-18); C REACTIVE PROTEIN QUANTITATIV 0.31 MG/DL (0.00-0.30); CALCIUM LEVEL 8.9 MG/DL (8.5-10.1); CARBON DIOXIDE LEVEL 28 MEQ/L (21-32); CHLORIDE LEVEL 103 MEQ/L (98-107); CREATININE FOR GFR 0.68 MG/DL (0.55-1.30); GLOMERULAR FILTRATION RATE > 60.0 (>60); GLUCOSE, FASTING 103 MG/DL (70-100); MAGNESIUM LEVEL 2.5 MG/DL (1.8-2.4); POTASSIUM SERUM 4.2 MEQ/L (3.5-5.1); SODIUM LEVEL 138 MEQ/L (136-145)
[2020-04-30] MEDS ORDERED: ONDANSETRON 4MG/2ML VIAL IV PRN (09:45)
[2020-04-30] MEDS ORDERED: DOXY-350 PO (11:38)
[2020-04-30] MEDS ORDERED: cefTRIAXone SOD 250MG VIAL (J0696 PER 250MG) IM ONE (11:45)
[2020-04-30] MEDS ORDERED: LIDOCAINE 1% SDV 5ML VIAL DILUENT ONE (11:45)
--- NOTE | 2020-04-30 12:25 | DS.PDOC ---
Discharge Summary General Date of Admission Apr 27, 2020 at 23:52 Date of Discharge 04/30/20 Discharge Summary PROCEDURES PERFORMED DURING STAY: 04/29/2020 Dr. Weaver has performed a debridement of her left facial abscess ADMITTING DIAGNOSES / DISCHARGE DIAGNOSES: Left facial abscess Heroin withdrawal COVID19 infection STD Polysubstance abuse DVT prophylaxis COMPLICATIONS/CHIEF COMPLAINT: Left face pain HISTORY OF PRESENT ILLNESS: Patient is a 29-year-old female with a PMHx significant for IV polysubstance abuse (Heroine / Lashon), STDs (Chlamydia, Gonorrhea, Trichomoniasis) who presented to the ER on 04/27 because of the swelling on her left cheek. Patient reported that it started one week ago and has been gradually growing in size. Patient reports that initially started off as a pimple patient had a CT scan in the emergency room that revealed soft tissue swelling of 3.4 x 4 cm, concerning for abscess. Was consulted. Initially, however, deferred the plan to ENT. Patient was incidentally found to be COVID19 positive fall in the emergency room; however, had remained asymptomatic saturating at 99% on room air. Patient was admitted to the hospitalist service for further evaluation and treatment. ENT was called on consultation. This morning, 04/30, patient reported that she will be leaving AGAINST MEDICAL ADVICE. Patient has been advised that risks of leaving AGAINST MEDICAL ADVICE include worsening of her medical condition (severe life threatening infection, scarring, disfigurement), disability, and or . The benefits of staying inpatient is to continue treating her underlying infection, allowing appropriate wound healing and continue to manage her COVID19 infection and drug withdrawal symptoms. HOSPITAL COURSE: Left facial abscess - Patient does not have any fever and remains hemodynamically stable - No significant leukocytosis; CRP is been trending down - Blood cultures 04/27: No growth after 48 hours; Wound cultures 04/27: MRSA - ENT on consultation and has performed a bedside debridement on 04/29 - Patient has been on vancomycin as inpatient; transitioned to Doxycycline based on sensitivities - Advised her to follow up with ENT / Continue dressing changes as per ENT recommendations / Follow up with Dr. Loya - Patient has been advised to follow-up with her primary care provider within next 7 days Heroin withdrawal - Patient has been placed on dilaudid to help control her pain - Patient has been requesting higher amounts of pain control after reporting significant pain; however, her vital signs appear to be normal COVID19 infection - Positive on 04/27 - Currently saturating well on room air - Remains afebrile - Continue with supportive care - Patient has been advised to remain under quarantine STD - Positive for chlamydia, gonorrhea and Trichomonas - Patient has been receiving ceftriaxone IV - As received a single dose of azithromycin and metronidazole - Patient was scheduled to receive a dose of IM ceftriaxone. However, had left AGAINST MEDICAL ADVICE before this dose was administered Polysubstance abuse - IV drug abuser with Lashon and Heroine - Patient is afebrile and hemodynamically stable - Blood cultures 04/27: Negative at 48 hours - Echo complete, report pending DVT prophylaxis - c/w Heparin DISCHARGE MEDICATIONS: Please see below. ALLERGIES: Please see below. PHYSICAL EXAMINATION ON DISCHARGE: Vitals (See below) General: Lying in bed, reports significant pain and demanding more pain medications, AAOx3 HEENT: NC, AT CVS: Not tachycardic, +S1S2 Lungs: Fair air entry b/l, no appreciable wheezing, rhonchi or rales Abdomen: Soft, ND, NT Extremities: no evidence of edema, - Calf tenderness LABORATORY DATA: Please see below. IMAGING: Maxillofacial 04/27: 1. Left facial soft tissue swelling identified. There is a complex peripherally enhancing loculated collection of fluid within the left facial soft tissues. This measures 3.4 x 2.0 x 4.5 cm. This is concerning for abscess, although necrotic malignancy is within the differential. This mass contacts the adjacent left masseter muscle. Clinical correlation recommended. 2. Borderline enlarged level 1 and level 2 cervical lymph nodes are identified. 3. Mild retrolisthesis of the left C1 lateral mass on C2 within the upper cervical spine. 4. Additional findings described above. CXR 04/27: No radiographic evidence of acute cardiopulmonary disease. ACTIVITY: [As tolerated]. DISCHARGE PLAN: Follow-up with primary care provider within the next 7 days Follow-up with ENT and Dr. Loya within the next 7 days Remain compliant with treatment plan and medications Return to ER if you experience any problems DISPOSITION: Against Medical Advice. DISCHARGE CONDITION: [Stable]. TIME SPENT ON DISCHARGE: 35 minutes. Vital Signs/I&Os Vital Signs Date Time Temp Pulse Resp B/P (MAP) Pulse Ox O2 Delivery O2 Flow Rate FiO2 04/30/20 09:15 04/30/20 08:00 94.8 84 109/58 (75) 98 Room Air I&O- Last 24 Hours up to 6 AM 04/30/20 06:00 Intake Total 1920 ml Output Total 2800 ml Balance -880 ml Laboratory Data Labs 24H Laboratory Tests 2 04/30/20 07:29: Nucleated Red Blood Cells % (auto) 0.0, Anion Gap 7L, Glomerular Filtration Rate > 60.0, Calcium Level 8.9, Magnesium Level 2.5H, C-Reactive Protein, Quantitative 0.31H, Procalcitonin <0.05 CBC/BMP Laboratory Tests 04/30/20 07:29 Microbiology Microbiology 04/27/20 Wound Culture - Final, Complete Staph.aureus Methicillin Resis 04/27/20 Blood Culture - Preliminary, Resulted No Growth after 48 hours. All Specime... 04/27/20 Blood Culture - Preliminary, Resulted No Growth after 48 hours. All Specime... Discharge Medications Scheduled Doxycycline Monohydrate (Doxycycline) 100 Mg Capsule, 1 CAP PO BID Allergies Coded Allergies: Penicillins (Verified Allergy, Unknown, 08/07/18) amoxicillin (Verified Allergy, Unknown, 08/07/18) TURKEY (Verified Adverse Reaction, Mild, FACE TINGLES, 01/19/17) AV PEPPER MD Apr 30, 2020 12:25
[2020-04-30] MEDS ORDERED: cefTRIAXone SOD 1 GM in D5W MINI-BAG PLUS 50 ML IV SCH (15:00)
== END 2020-04-30 11:45 | disposition left against medical advice (07) | DRG 114 ==
LOC: M ED 20:02 → M ED INP 23:52 → M 4MAIN 04-28 05:14
PROVIDERS: ADMIT Family Medicine; ATTEND Internal Medicine
DX: K12.2 Cellulitis and abscess of mouth (principal); U07.1 COVID-19; A54.9 Gonococcal infection, unspecified; Z88.0 Allergy status to penicillin; Z91.018 Allergy to other foods; F11.13 Opioid abuse with withdrawal; F17.210 Nicotine dependence, cigarettes, uncomplicated

== ENCOUNTER 2020-06-08 15:16 | Inpatient (IN) | payer OTHER ==
[~2020-06-08] VITALS: Ht 160 cm; Wt 44.4 kg
[2020-06-08] MEDS ORDERED: ONDANSETRON 4MG/2ML VIAL IV ONE (15:45)
[2020-06-08 16:17] LABS: BASO % 0.1 % (0.0-1.0); HEMATOCRIT 51.9 % (36.0-47.0); HEMOGLOBIN 17.5 g/dl (12.0-15.5); LYMPH # 1.3 10^3/uL (1.5-5.0); LYMPH % 8.2 % (24.0-44.0); MEAN CORPUSCULAR HGB CONC 33.7 g/dl (32.0-36.5); MEAN CORPUSCULAR VOLUME 85.9 fl (80.0-96.0); MONO # 0.8 10^3/uL (0.0-0.8); NEUTROPHILS # 13.7 10^3/uL (1.5-8.5); NEUTROPHILS % 86.3 % (36.0-66.0); PLATELET COUNT, AUTOMATED 480 10^3/uL (150-450); RED BLOOD COUNT 6.04 10^6/uL (4.00-5.40); WHITE BLOOD COUNT 15.9 10^3/uL (4.0-10.0)
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
--- OUTSIDE RECORDS SUMMARY | 2020-06-08 16:29 | CCD | Continuity of Care Document ---
Author Author [facility] Organization Unknown Address [address] [place] [address] Phone Unavailable Problems Active Problems Provider Date Substance abuse Medical Onset: 09/21/2016 Social History Type Date Description Comments Sex Unknown Allergies, Adverse Reactions, Alerts Active Allergies Reaction Severity Comments Date [place] 09/21/2016 Amoxicillin rash 12/27/2017 Latex Hives Moderate 03/06/2018 Medications Description No Active Medications Immunizations Description No Information Available Vital Signs Date Vital Result Comment 11/24/2018 9:00am BP Systolic 100 mmHg BP Diastolic 58 mmHg Heart Rate 98 /min Respiratory Rate 18 /min Body Temperature 98.2 F Weight 114.44 lb 11/17/2018 9:53am BP Systolic 90 mmHg BP Diastolic 70 mmHg Heart Rate 105 /min Respiratory Rate 18 /min Body Temperature 98.4 F Weight 98.00 lb Results Description No Information Available Procedures Description No Information Available Medical Devices Description No Information Available Encounters Description No Information Available Assessments Description No Information Available Plan of Treatment No Information Available Functional Status Description No Information Available Mental Status Description No Information Available Referrals Description No Information Available
--- OUTSIDE RECORDS SUMMARY | 2020-06-08 16:29 | CCD ---
Author ONUR Quigley Autogen erated Organization [facility] Address Unknown Phone Unavailable Care Team Providers Care Streetcar Conductor Name Role Phone Lorena Lr AttendingPractitioner1 Saeid Lr AdmittingPractitioner1 Functional Status Allergies Name Onset Date Reaction Severity AMOXICILLIN (Allergy) SatMar 24 07:00:00 2017 Encounters Program Name Primary Diagnosis Admission Date/ Time Discharge Date/Time [facility] Waiting SatJun 06 10:00:00 2020 Immunizations No Known Immunizations Lab Results No Known Laboratory Results Medications Medication Directions Start Date End Date SUBOXONE (BUPRENORPHINE-NALOXONE) 4MG-1MG FILM SatApr 21 08:24:00 2017May 01 08:23:00 EST 2018 HYDROXYZINE PAMOATE 50 MG CAPSULE SatApr 19 15:07:00 2017Jun 14 15:06:00 2018 BUPROPION 75 MG TABLET SatApr 18 17:36:00 2017May 16 17:35:00 [address] one (1) audelia m under the tongue twice a day SatApr 21 00:00:00 2017Apr 30 00:00 :00 2018 LAMOTRIGINE 25 MG TABLET SatApr 17 15:09:00 2017May 01 15:08:00 2018 hydrOXYzine Pamoate 50 MG CAP Take one (1) capsule by mouth three times a day, as needed SatApr 11 00:00:00 2017Apr 24 00:00:00 2017 BUPROPION 75 MG TABLET SatApr 08 14:15:00 2017Apr 18 14:14:00 [address] one (1) audelia m under the tongue twice a day SatApr 11 00:00:00 2017Apr 20 00:00 :00 2017 TRAZODONE HYDROCHLORIDE 50 MG TABLET SatApr 03 15:09:00 2017May 01 15:08:00 EST 2019 LAMOTRIGINE 25 MG TABLET SatApr 03 15:09:00 EST 2017Apr 17 15:08:00 EST 2018 TRAZODONE HYDROCHLORIDE 50 MG TABLET SatApr 03 15:10:00 EST 2017May 01 15:09:00 EST 2019 BUPROPION 75 MG TABLET SatApr 03 15:08:00 EST 2018 SatApr 13 15:07:00 EST 2018 SUBOXONE (BUPRENORPHINE-NALOXONE) 4MG-1MG FILM SatApr 02 09:30:00 EST 2017Apr 30 09:29:00 EST [address] one (1) audelia m under the tongue twice a day SatApr 01 00:00:00 EST 2017Apr 10 00:00 :00 EST 2017 SUBOXONE (BUPRENORPHINE-NALOXONE) 4MG-1MG FILM SatMar 28 08:00:00 EST 2017Apr 07 07:59:00 EST 2018 CLINDAMYCIN HCL 300 MG CAPSULE SatMar 27 16:00:00 EST 2017Apr 06 15:59:00 EST 2018 HYDROXYZINE PAMOATE 50 MG CAPSULE SatMar 25 08:00:00 EST 2017Apr 08 07:59:00 EST 2018 CLONIDINE HCL 0.1 MG TABLET SatMar 25 08:00:00 EST 2017Mar 26 07:59:00 EST 2017 SUBOXONE (BUPRENORPHINE-NALOXONE) 4MG-1MG FILM SatMar 26 08:00:00 EST 2017Apr 05 07:59:00 EST 2018 NALTREXONE 50 MG TABLET SatMar 25 08:00:00 EST 2017Apr 22 07:59:00 EST 2018 ZOFRAN (ONDANSETRON HYDROCHLORIDE) 4 MG TABLET SatMar 24 11:53:00 EST 2017Apr 21 11:52:00 EST 2018 XOPENEX (LEVALBUTEROL HYDROCHLORIDE) 1.25 MG /3 ML SOLUTION SatMar 24 11:53:00 EST 2017Apr 21 11:52 :00 EST 2018 TRIPLE ANTIBIOTIC 400UNITS/1G M-3.5MG/1GM-5000UNITS/1GM OINTMENT SatMar 24 11:53:00 EST 2018 Apr 21 11:52:00 EST 2018 ZANTAC (RANITIDINE HYDROCHLORIDE) 150 MG TABLET SatMar 24 11:53:00 EST 2017Apr 21 11:52:00 EST 2018 PHENYLEPHRINE HCL 10 MG TABLET SatMar 24 11:53:00 EST 2017Apr 21 11:52:00 EST 2018 PEPTO-BISMOL (BISMUTH SUBSALICYLATE) 262 MG/ 15 ML SUSPENSION SatMar 24 11:53:00 EST 2017Apr 21 11:52 :00 EST 2018 ORAJEL MOUTH SORE MEDICINE (BE NZALKONIUM CHLORIDE-BENZOCAINE/ZINC CHLORIDE) 0.02%-20%-0.1% GEL/JELLY SatFeb 28 6 11:53:00 EST 2017Apr 21 11:52:00 EST 2018 NICODERM CQ (NICOTINE) 7 MG/24 HR PATCH, EXT ENDED RELEASE SatMar 24 11:53:00 EST 2017Apr 21 11:52 :00 EST 2018 NICODERM CQ (NICOTINE) 21 MG/24 HR PATCH, EX TENDED RELEASE SatMar 24 11:53:00 EST 2017Apr 21 11:52 :00 EST 2018 NICODERM CQ (NICOTINE) 14 MG/24 HR PATCH, EX TENDED RELEASE SatMar 24 11:53:00 EST 2017Apr 21 11:52 :00 EST 2018 MYLANTA (ALUMINUM HYDROXIDE-MA GNESIUM HYDROXIDE-SIMETHICONE) 200MG/5 ML-200MG/5 ML-20MG/5 ML SUSPENSION SatMar 24 11:53:00 EST 2017Apr 21 11:52:00 EST 2018 MULTIVITAMIN TABLET SatMar 24 11:53:00 EST 2017Apr 21 11:52:00 EST 2018 MILK OF MAGNESIA 400 MG/5 ML SOLUTION SatMar 24 11:53:00 EST 2017Apr 21 11:52:00 EST 2018 MELATONIN 5 MG CAPSULE SatMar 24 11:53:00 EST 2017Apr 21 11:52:00 EST 2018 IBUPROFEN 200 MG TABLET SatMar 24 11:53:00 EST 2017Apr 21 11:52:00 EST 2018 ICY HOT (MENTHOL-METHYL SALICYLATE) 10%-30% CREAM SatMar 24 11:53:00 EST 2017Apr 21 11:52:00 EST 2018 GUAIFENESIN 600 MG TABLET, EXTENDED RELEASE SatMar 24 11:53:00 EST 2017Apr 21 11:52:00 EST 2018 FIBER-LAX 625 MG TABLET SatMar 24 11:53:00 EST 2017Apr 21 11:52:00 EST 2018 EXCEDRIN (ACETAMINOPHEN-ASPIRI N/CAFFEINE) [id number] TABLET SatMar 24 11:53:00 2017Apr 21 11:52:00 EST 2017 COLACE (DOCUSATE SODIUM) 100 MG CAPSULE, LIQ UID FILLED SatMar 24 11:53:00 EST 2017Apr 21 11:52 :00 EST 2017 CLARITIN (LORATADINE) 10 MG TABLET SatMar 24 11:53:00 2017Apr 21 11:52:00 EST 2017 BENADRYL ALLERGY (DIPHENHYDRAM INE HYDROCHLORIDE) 25 MG TABLET SatMar 24 11:53:00 EST 2017Apr 21 11:52:00 EST 2017 BENADRYL ALLERGY (DIPHENHYDRAM INE HYDROCHLORIDE) 25 MG TABLET SatMar 24 11:53:00 2017Apr 21 11:52:00 EST 2017 TUMS (CALCIUM CARBONATE) 500 MG TABLET, CHEWABLE SatMar 24 11:53:00 2017Apr 21 11:52:00 EST 2017 GAS-X (SIMETHICONE) 80 MG TABLET, CHEWABLE SatMar 24 11:53:00 2017Apr 21 11:52:00 EST 2017 ACETAMINOPHEN 500 MG CAPSULE SatMar 24 11:53:00 EST 2017Apr 21 11:52:00 EST 2017 Problems Active Concerns * Heroin use disorder, severe * Code: [id number] * Start Date: SatFeb 03 08:00:00 EDT 2018 * Text: * Addiction/Abstinence/Withdrawal * Code: USER-Addiction * Start Date: SatMar 24 07:00:00 EST 2017 * Text: * Emotional/Behavioral/State of Change * Code: USER-Emotional * Start Date: SatMar 24 07:00:00 EST 2018 * Text: * Family * Code: USER-Family * Start Date: SatMar 24 07:00:00 EST 2018 * Text: * Social/Interpersonal/Recovery Environment * Code: USER-Social * Start Date: SatMar 24 07:00:00 EST 2018 * Text: * Legal * Code: USER-Legal * Start Date: SatMar 24 07:00:00 EST 2017 * Text: * Biomedical * Code: USER-Biomedical * Start Date: SatMar 24 07:00:00 EST 2018 * Text: * Educational/Vocational * Code: USER-EducationalVoc * Start Date: SatMar 24 07:00:00 EST 2018 * Text: Procedures No Known Procedures Social History Social History Observation Description Franco e Smoking Status Current Every Da y Smoker SatJun 06 07:00:00 EST 2020 Smoking Status Current Every Da y Smoker SatJun 03 07:00:00 EST 2017 Sex Female Sat Jul 12 07:00:00 EST 1990 Vital Signs No Known Vitals
[2020-06-08] MEDS ORDERED: NS 1,000 ML IV ONE (16:30)
--- NOTE | 2020-06-08 17:36 | REP ---
INDICATION: Abdominal Pain COMPARISON: None. TECHNIQUE: Upright view of the chest with supine and upright views of the abdomen and pelvis. FINDINGS: Frontal upright view of the chest demonstrates no acute cardiopulmonary process or free air below the diaphragm to suspect pneumoperitoneum. Supine and upright views of the abdomen and pelvis demonstrate nonspecific bowel gas pattern without obstruction or perforation. No organomegaly. Small punctate calcifications in the pelvis may represent phleboliths. Skeletal structures normal for age. IMPRESSION: Nonspecific bowel gas pattern. <Electronically signed by Yosvany Fernandez > 06/08/20 [id number]
[2020-06-08 17:41] LABS: ALBUMIN 4.7 GM/DL (3.2-5.2); ALT/SGPT 22 U/L (12-78); BILIRUBIN,DIRECT 0.2 MG/DL (0.0-0.2); BILIRUBIN,TOTAL 0.6 MG/DL (0.2-1.0); CK-MB VALUE MASS < 1.0 NG/ML (<3.6); CPK CREATINE PHOSPHOKINASE 92 U/L (26-192); MB/CK RELATIVE INDEX 1.09 (< OR =4); TOTAL PROTEIN 8.6 GM/DL (6.4-8.2); TROPONIN I < 0.02 NG/ML (< 0.10)
[2020-06-08] MEDS ORDERED: METOCLOPRAMIDE INJ 10MG/2ML VIAL (J2765 PER 1) IV ONE (17:45)
[2020-06-08] MEDS ORDERED: MORPHINE 4 MG/ML 1ML VIAL/SYRINGE (J2270) IV ONE (17:45)
[2020-06-08] MEDS ORDERED: ISOVUE-370 76% 100ML VIAL As Ordered ONE (17:55)
[2020-06-08] MEDS ORDERED: NS IV ONE (18:15)
[2020-06-08 18:26] LABS: C REACTIVE PROTEIN QUANTITATIV < 0.30 MG/DL (0.00-0.30)
[2020-06-08 18:48] LABS: ERYTHROCYTE SEDIMENTATION RATE 5 mm/hr (0-20)
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
--- NOTE | 2020-06-08 19:17 | REPVR ---
PROCEDURE INFORMATION: Exam: CT Abdomen And Pelvis With Contrast Exam date and time: 06/08/2020 6:05 PM Age: 29 years old Clinical indication: Abdominal pain; Epigastric; Additional info: Upper abd pain/diffuse abd pain TECHNIQUE: Imaging protocol: Computed tomography of the abdomen and pelvis with contrast. Radiation optimization: All CT scans at this facility use at least one of these dose optimization techniques: automated exposure control; mA and/or kV adjustment per patient size (includes targeted exams where dose is matched to clinical indication); or iterative reconstruction. Contrast material: ISOVUE 370; Contrast volume: 100 ml; Contrast route: INTRAVENOUS (IV); COMPARISON: CT ABD PELVIS W/O CONTRAST 03/01/2020 10:37 AM FINDINGS: Lungs: The lung bases appear clear. Heart: The heart is normal in size and there is no pericardial effusion Liver: There is uniform enhancement of the liver. Gallbladder and bile ducts: The gallbladder is contracted. Normal size common bile duct. Pancreas: Normal appearing pancreas. Spleen: Normal appearing spleen. Adrenal glands: Normal adrenal glands. Kidneys and ureters: There is enhancement of both kidneys and no evidence of hydronephrosis. Stomach and bowel: There is a large amount of secretions within the stomach and an air-fluid level. There is some thickening of the pylorus identified and marked elongation and distention of the stomach. There was greater distention of the stomach on the examination of 03/01/2020. The cecum is in the right pelvis and there is some opaque material within the cecum. Intraperitoneal space: There is no evidence of pneumoperitoneum. There is no evidence of intraperitoneal free fluid. Vasculature: There is opacification of the aorta and appearing normal in size. There is opacification of the SMV and also opacification of the SMA. Lymph nodes: Unremarkable. No enlarged lymph nodes. Urinary bladder: There is distention of the urinary bladder. Reproductive: Bulbous uterus. Follicular cysts of the ovaries. There are uterine varices bilaterally. Bones/joints: There is facet hypertrophy L5-S1 on the right. There is rotoscoliosis of the lumbar spine. IMPRESSION: There is distention of the stomach with secretions and an air-fluid level. There is thickening of the pyloric channel. Distention of the stomach was much greater on the examination of 03/01/2020. Electronically signed by: Aston George On 06/08/2020 19:17:38 PM
--- NOTE | 2020-06-08 19:29 | REPVR ---
PROCEDURE INFORMATION: Exam: CT Angiography Chest With Contrast Exam date and time: 06/08/2020 6:05 PM Age: 29 years old Clinical indication: Chest pain; Additional info: Upper abd pain TECHNIQUE: Imaging protocol: Computed tomographic angiography of the chest with contrast. 3D rendering (Not supervised by radiologist): MIP and/or 3D reconstructed images were created by the technologist. Radiation optimization: All CT scans at this facility use at least one of these dose optimization techniques: automated exposure control; mA and/or kV adjustment per patient size (includes targeted exams where dose is matched to clinical indication); or iterative reconstruction. Contrast material: ISOVUE 370; Contrast volume: 100 ml; Contrast route: INTRAVENOUS (IV); COMPARISON: CT Chest without contrast 03/01/2020 10:37 AM FINDINGS: Pulmonary arteries: There is opacification of the pulmonary arteries with no evidence of pulmonary embolus. Aorta: Unremarkable. No aortic aneurysm. No aortic dissection. Veins: There is an azygos lobe and vein. Thyroid: Normal thyroid. Lungs: Clear appearing lungs. Pleural spaces: There is no evidence of pneumothorax or pleural effusion. Heart: Unremarkable. No cardiomegaly. No pericardial effusion. Lymph nodes: There is no evidence of mediastinal lymphadenopathy. Bones/joints: There is no evidence of bony abnormality. Soft tissues: There is no evidence of soft tissue abnormality. IMPRESSION: No evidence of pulmonary embolus. Electronically signed by: Aston George On 06/08/2020 19:29:34 PM
[2020-06-08 19:56] LABS: AMPHETAMINES LEVEL URINE NEGATIVE (NEGATIVE); BARBITURATES URINE NEGATIVE (NEGATIVE); BENZODIAZEPINES URINE NEGATIVE (NEGATIVE); CANNABINOIDS URINE NEGATIVE (NEGATIVE); COCAINE METABOLITE URINE NEGATIVE (NEGATIVE); METHADONE URINE NEGATIVE (NEGATIVE); OPIATES URINE NEGATIVE (NEGATIVE); PHENCYCLIDINE URINE NEGATIVE (NEGATIVE)
[2020-06-08 20:10] LABS: RSV AMPLIFICATION NEGATIVE (NEGATIVE)
[2020-06-08] MEDS ORDERED: LORazepam 2 MG TAB PO PRN (21:30)
[2020-06-08] MEDS ORDERED: ONDANSETRON 4MG/2ML VIAL IV PRN (21:30)
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
[2020-06-08 21:45] LABS: MAGNESIUM LEVEL 2.8 MG/DL (1.8-2.4)
[2020-06-08] MEDS: ACETAMINOPHEN TAB 650MG DOSE (2X325MG) PO PRN (23:02)
[2020-06-08 23:11] VITALS: BP 124/72
[2020-06-08] MEDS: THIAMINE 100 MG TAB PO SCH (23:22)
[2020-06-08] MEDS: SUCRALFATE 1 GM TAB PO SCH (23:22)
[2020-06-08] MEDS: NS 1,000 ML IV SCH (23:22)
[2020-06-08] MEDS: PANTOPRAZOLE 20 MG TAB PO SCH (23:22)
[2020-06-08 23:30] VITALS: BP 124/72
--- NOTE | 2020-06-08 23:32 | CR ---
EMERGENCY DEPARTMENT CONSULTATION DATE: 06/08/2020 REASON FOR CONSULTATION: Abdominal pain with nausea and vomiting. HISTORY OF PRESENT ILLNESS: The patient is a 29-year-old woman brought to the Emergency Department at approximately 3:15 in the afternoon of the may with complaints of nausea and vomiting and abdominal pain. She was brought by [facility] from the [facility]. She apparently has been under arrest since Saturday the . She has a history of substance abuse and reports that she has withdrawal symptoms, what she calls being "dope sick" whenever she gets arrested. In the Emergency Department she had some emesis and complained of abdominal pain. The P.A. in the Emergency Department consulted me to evaluate the patient regarding her abdominal pain. ALLERGIES: The patient reports allergies to Penicillins and turkey. MEDICATIONS: The patient is not on any prescribed medications. She apparently has been a user of Lashon and heroin. PAST MEDICAL HISTORY: The patient's past medical history is significant for some anxiety. PAST SURGICAL HISTORY: The patient's past surgical history is negative for any intraabdominal procedure. FAMILY HISTORY: Noncontributory. SOCIAL HISTORY: The patient is a smoker. She reports some alcohol intake and has a history of substance abuse with Lashon and heroin. REVIEW OF SYSTEMS: The patient's review of systems shows no history of heart or lung or endocrine problems. PHYSICAL EXAMINATION: GENERAL APPEARANCE: A thin woman lying quietly on the E.R. stretcher in no obvious distress. She appeared to be dozing when I entered the room. She is wearing wrist and ankle shackles. The patient is alert and responsive. VITAL SIGNS: Most recent vital signs show a temperature of 97.6, pulse of 78 and a blood pressure of 123/76. SKIN: Warm and dry. HEENT: Sclerae are anicteric. HEART: Regular rhythm. LUNGS: Clear. ABDOMEN: Thin. She has bowel sounds present. The abdomen is soft and without any tenderness. She has no evident abdominal scars. LABORATORY STUDIES: A CBC showing a white count of 16, hematocrit of 18, hemoglobin 52 and a platelet count of 480,000. Differential count shows 86% neutrophils, 8% lymphocytes and 5% monocytes. Chemistry profile shows a lactic acid of 2.8. She had liver function tests that showed a minimal elevation of her alkaline phosphatase to 119. She had a urinalysis that was not strongly suggestive of a urinary tract infection. Toxicology was negative. She had SARS COVID testing that was negative. IMAGING: Imaging was performed in the Emergency Department which included an abdominal x-ray, a CT angiogram and a CT scan of the abdomen and pelvis. Her abdominal x-ray was unremarkable. Her CT of the abdomen and pelvis showed some fluid and air in the stomach. There was no evidence of any small or large bowel distention. There was no free air or free fluid. IMPRESSION: I think it is most likely that the patient is suffering from withdrawal symptoms related to her narcotic withdrawal. Her abdomen is flat and soft and nondistended and her CT scan shows no findings of significance. RECOMMENDATIONS: If the patient's symptoms are thought to be severe enough to warrant admission, then a Hospitalist admission would be appropriate. There does not appear to be any evidence suggesting she would need surgical intervention at this time.
--- NOTE | 2020-06-09 03:47 | HPEPDOC ---
General Date of Admission Jun 08, 2020 at 21:27 Date of Service: Jun 08, 2020 Chief Complaint The patient is a 29-year-old female admitted with a reason for visit of Heroin Withdrawal,Nausea & Vomiting, Substance Abu., and acute kidney injury Source: Patient History of Present Illness Ms. Horne is a 29 year old female with polysubstance abuse and recently COVID positive (now negative) who is here for intractable nausea/vomiting with abdominal pain. Patient had last used Lashon and Heroin on Saturday. She was incarcerated for polysubstance use and moraes larceny and has not used Lashon or Heroin. She started to have abdominal pain, nausea, and vomiting. She has had 4 episodes of bilious green vomit today without signs of blood. She feels like she is withdrawing from her drugs. Otherwise, CT abdomen and pelvis was obtained which demonstrated distention of the stomach with secretions and air-fluid level and thickening of pyloric channel. ED consulted general surgery, no obstruction. ED spoke with GI about possible pyloric stenosis, nothing to do at this time. Otherwise, due to the nausea and vomiting patient is dry. Creatinine was 1.3 (not seen in [facility], but seen on printed lab slip). Baseline creatinine 0.6. Patient will be admitted for acute kidney injury and intractable nausea and vomiting Home Medications No Active Prescriptions or Reported Meds Allergies Coded Allergies: Penicillins (Verified Allergy, Mild, RASH, 06/08/20) amoxicillin (Verified Allergy, Mild, RASH, 06/08/20) TURKEY (Verified Adverse Reaction, Mild, FACE TINGLES, 01/19/17) Past Medical History Medical History 1. Asthma 2. Chlamydia infection 3. Polysubstance abuse (heroin and Lashon) 4. COVID positive on 04/27/2020 Surgical History 1. Tonsillectomy Family History Father: [place] in his 50's Social History * Smoker: current smoker (Stopped smoking 3 days ago because incarcerated. smoked for a couple of years 1ppd) Alcohol: Denies Drugs: heroin, marijuana A-FIB/CHADSVASC A-FIB History Current/History of A-Fib/PAF?: No Review of Systems Constitutional: Denies: Chills, Fever Eyes: Denies: Vision change ENT: Denies: Sore Throat Skin: Denies: Rash Pulmonary: Reports: Dyspnea Cardiovascular: Denies: Chest Pain Gastrointestinal: Reports: Nausea, Vomiting, Abdominal Pain, Constipation Genitourinary: Denies: Dysuria Hematologic: Denies: Bruising Psych: Reports: Anxiety, Depression Physical Examination General Exam: Positive: No Acute Distress, Other (started dry heaving after drinking fluid) Eye Exam: Positive: EOMI; Negative: Sclera icteric Neck Exam: Positive: Supple Chest Exam: Positive: Clear to auscultation; Negative: Rales, Rhonchi, Wheezing Heart Exam: Positive: Tachycardic, Regular Rhythm Abdomen Exam: Positive: Normal bowel sounds, Soft, Tenderness Extremity Exam: Negative: Edema Neuro Exam: Positive: Normal Speech, Cranial Nerves 3-12 NL Psych Exam: Positive: Mental status NL, Mood NL Vital Signs Vital Signs Date Time Temp Pulse Resp B/P (MAP) Pulse Ox O2 Delivery O2 Flow Rate FiO2 06/08/20 23:30 81 124/72 06/08/20 23:11 98.2 18 100 Room Air Laboratory Data Labs 24H Laboratory Tests 2 06/08/20 16:03: Immature Granulocyte % (Auto) 0.4, Neutrophils (%) (Auto) 86.3H, Lymphocytes (%) (Auto) 8.2L, Monocytes (%) (Auto) 5.0, Eosinophils (%) (Auto) 0.0, Basophils (%) (Auto) 0.1, Neutrophils # (Auto) 13.7H, Lymphocytes # (Auto) 1.3L, Monocytes # (Auto) 0.8, Eosinophils # (Auto) 0.0, Basophils # (Auto) 0.0, Nucleated Red Blood Cells % (auto) 0.0, Erythrocyte Sedimentation Rate 5 06/08/20 17:05: Lactic Acid Level 2.8*H, Magnesium Level 2.8H, Total Bilirubin 0.6, Direct Bilirubin 0.2, Aspartate Amino Transf (AST/SGOT) 8, Alanine Aminotransferase (ALT/SGPT) 22, Alkaline Phosphatase 119H, Total Creatine Kinase 92, Creatine Kinase MB < 1.0, Creatine Kinase MB Relative Index 1.09, Troponin I < 0.02, C- Reactive Protein, Quantitative < 0.30, Total Protein 8.6H, Albumin 4.7, Albumin/Globulin Ratio 1.2 06/08/20 18:13: Urine Opiates Screen NEGATIVE, Urine Methadone Screen NEGATIVE, Urine Barbiturates Screen NEGATIVE, Urine Phencyclidine Screen NEGATIVE, Urine Amphetamines Screen NEGATIVE, Urine Benzodiazepines Screen NEGATIVE, Urine Cocaine Metabolite Screen NEGATIVE, Urine Cannabinoids Screen NEGATIVE 06/08/20 19:07: Urine Color YELLOW, Urine Appearance CLEAR, Urine pH 6.0, Urine Specific [place] 1.060, Urine Protein 1+H, Urine Glucose (UA) NEGATIVE, Urine Ketones TRACEH, Urine Blood NEGATIVE, Urine Nitrite NEGATIVE, Urine Bilirubin NEGATIVE, Urine Urobilinogen 0.2, Urine Leukocyte Esterase NEGATIVE, Urine WBC (Auto) 3, Urine RBC (Auto) 2, Urine Hyaline Casts (Auto) 0, Urine Bacteria (Auto) 1+H, Urine Squamous Epithelial Cells 3, Urine Mucus (Auto) SMALL, Urine Sperm (Auto) , Coronavirus (COVID-19)(PCR) NEGATIVE, Influenza Type A (RT-PCR) NEGATIVE, Influenza Type B (RT-PCR) NEGATIVE, Respiratory Syncytial Virus (PCR) NEGATIVE 06/08/20 21:48: Lactic Acid Followup at 4 Hours 1.9 CBC/BMP Laboratory Tests 06/08/20 16:03 Assessment/Plan Ms. Horne is a 29 year old female with polysubstance abuse and recently COVID positive (now negative) who is here for intractable nausea/vomiting with abdominal pain and found to have acute kidney injury. Labs did not cross into [facility]. Na 135, K 4.5, Chloride 92, Bicarb 35, BUN 51, Creatinine 1.3, and glucose 140. Intractable nausea/vomiting most likely secondary to polysubstance withdrawal. We will keep her NPO and start Protonix and Carafate. Acetaminophen for pain or fever. IVF for acute kidney injury. Otherwise, while speaking with the officers, she is to not have soda, sweets, or deserts. Plan / VTE VTE Prophylaxis Ordered?: Yes Plan Plan 1. Intractable Nausea and Vomiting -Most likely from withdrawal -Supportive care with NPO, carafate, PPI 2. Acute kidney injury -2/2 poor oral intake and N/V -IVF -Avoid nephrotoxins 3. Metabolic alkalosis with hypochloremia -2/2 N/V -Supportive care and monitor BMP 4. Underweight -BMI 17.3 -Multivitamin, Thiamine, Folic acid -When can tolerate oral diet, can give ensure 5. DVT ppx -Lovenox Disposition: Pending on improvement on renal function and being able to tolerate diet. Per officers, no soda, sweets, or dessert ARPITA TURNER DO Jun 09, 2020 03:47
[2020-06-09] MEDS: ACETAMINOPHEN TAB 650MG DOSE (2X325MG) PO PRN ×3 (04:49→17:30)
[2020-06-09 06:00] VITALS: BP 124/77
[2020-06-09 07:06] LABS: HEMATOCRIT 41.1 % (36.0-47.0); MEAN CORPUSCULAR HEMOGLOBIN 28.9 pg (27.0-33.0); MEAN CORPUSCULAR HGB CONC 33.1 g/dl (32.0-36.5); MEAN CORPUSCULAR VOLUME 87.3 fl (80.0-96.0); RED BLOOD COUNT 4.71 10^6/uL (4.00-5.40)
[2020-06-09 07:17] LABS: HEMOGLOBIN 13.6 g/dl (12.0-15.5)
[2020-06-09 07:18] LABS: PLATELET COUNT, AUTOMATED 341 10^3/uL (150-450)
[2020-06-09 07:25] LABS: BLOOD UREA NITROGEN 24 MG/DL (7-18); CARBON DIOXIDE LEVEL 24 MEQ/L (21-32); CHLORIDE LEVEL 104 MEQ/L (98-107); GLOMERULAR FILTRATION RATE > 60.0 (>60); GLUCOSE, FASTING 111 MG/DL (70-100); LIPASE 593 U/L (73-393); POTASSIUM SERUM 3.3 MEQ/L (3.5-5.1); SODIUM LEVEL 137 MEQ/L (136-145)
[2020-06-09] MEDS: THIAMINE 100 MG TAB PO SCH ×2 (07:53→20:19)
[2020-06-09] MEDS: MULTIVITAMINS/MINERALS THERAP 1 TAB PO SCH (07:53)
[2020-06-09] MEDS: ENOXAPARIN 30MG/0.3ML SYRINGE (J1650 PER 10MG) SC SCH (07:53)
[2020-06-09] MEDS: SUCRALFATE 1 GM TAB PO SCH ×4 (07:53→20:19)
[2020-06-09] MEDS: FOLIC ACID 1 MG TAB PO SCH (07:53)
[2020-06-09] MEDS: NS 1,000 ML IV SCH ×2 (07:57→23:01)
--- NOTE | 2020-06-09 07:58 | IPNPDOC ---
Text Note Date of Service The patient was seen on 06/09/20. NOTE Subjective: Patient was seen this morning at bedside. Patient isn't very cooperative she was curled up in bed wanting to sleep and didn't want to answer many my questions. When I first walked into the room she was asleep comfortably and didn't appear to be in any distress. She reluctantly answers some questions to me she wasn't feeling nauseous anymore or vomited. She denies abdominal pain she does endorse some back pain. Asking for methadone. States that she smokes 5 bags of heroin daily her last use was approximately 5 days ago Objective: Very limited physical exam as patient mostly refuses to be examined Thin young female who was initially appearing very comfortable and sleeping in bed without any signs of distress or pain She did allow me to auscultate her heart which appeared regular her lungs were clear to auscultation bilaterally without wheezing or crackles I was also able to examine her abdomen which was soft and appeared nontender to palpation She did not allow me to examine her any further I couldn't observe any obvious swelling in her extremities Assessment/plan: 29-year-old female history of heroin abuse currently incarcerated admitted to the hospital due to intractable nausea and vomiting found to have possible pancreatitis admitted to the medical unit for further management. # Intractable nausea and vomiting: This could have been due to withdrawals but appears to have now resolved. Zofran PRN. Advance diet as tolerated. # Possible pancreatitis: Lipase was elevated however no evidence of pink otitis on CT abdomen and benign abdominal exam no reported abdominal pain. Advance diet as tolerated. Continue IV fluids. Trend lipase tomorrow morning. # Febrile: Could be secondary to withdrawals. No obvious signs of infection. UA ok. Fu CXR. Fu procalcitonin. # Leukocytosis: I think the initial measurement that was elevated was due to hemoconcentration as all values were elevated and normalized with IV fluids. Fu procalcitonin. # Heroin abuse: Should be referred to addiction rehabilitation program. Symptomatic management of any withdrawal symptoms as they arise. # Acute kidney injury: This resolved with IV fluids was likely secondary to dehydration from vomiting. # Lactic acidosis: This resolved with IV fluids this was likely related to her nausea and vomiting causing hydration. # Hypokalemia: Replace potassium. Likely related to vomiting. Monitor # underweight: BMI 17.3. Dietitian consult. # DVT prophylaxis: Bonitax A Liliana Hospitalist Vero SUÁREZ, I+O VSVero I+O Laboratory Tests 06/08/20 16:03 06/09/20 06:08 Vital Signs Date Time Temp Pulse Resp B/P (MAP) Pulse Ox O2 Delivery O2 Flow Rate FiO2 06/09/20 06:00 100.3 77 19 124/77 (93) 99 Room Air I&O- Last 24 Hours up to 6 AM 06/09/20 06:00 Intake Total 1330 ml Output Total 475 ml Balance 855 ml ABA CASEY MD Jun 09, 2020 07:58
[2020-06-09] MEDS ORDERED: POTASSIUM CHLORIDE 10 MEQ SR TABLET PO ONE (08:00)
--- NOTE | 2020-06-09 09:36 | ECGEPIP ---
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
--- NOTE | 2020-06-09 11:56 | REP ---
INDICATION: Febrile. COMPARISON: Comparison chest x-ray June 08, 2020.. TECHNIQUE: Portable upright AP radiograph. FINDINGS: An azygos lobe is again noted. The lungs are well inflated and otherwise clear. Pleural angles are sharp. Heart size is normal. Pulmonary vasculature is not increased. No infiltrate is seen. IMPRESSION: Azygos lobe noted incidentally. Negative portable chest x-ray. <Electronically signed by Pratik Carroll > 06/09/20 [id number]
[2020-06-09] MEDS ORDERED: LORazepam 2 MG/ML VIAL IV ONE (13:00)
[2020-06-09] MEDS ORDERED: LORazepam 2 MG/ML VIAL As Ordered ONE (13:06)
[2020-06-09 14:00] VITALS: BP 156/79
[2020-06-09] MEDS: LORazepam 2 MG/ML VIAL IV PRN (20:19)
[2020-06-09] MEDS: PANTOPRAZOLE 20 MG TAB PO SCH (20:19)
[2020-06-09 22:00] VITALS: BP 126/76
[2020-06-10] MEDS: ACETAMINOPHEN TAB 650MG DOSE (2X325MG) PO PRN ×2 (01:16→08:32)
[2020-06-10] MEDS: LORazepam 2 MG/ML VIAL IV PRN (02:52)
[2020-06-10 06:00] VITALS: BP 123/76
[2020-06-10 06:19] LABS: HEMATOCRIT 36.8 % (36.0-47.0); HEMOGLOBIN 12.5 g/dl (12.0-15.5); MEAN CORPUSCULAR HEMOGLOBIN 28.9 pg (27.0-33.0); RED BLOOD COUNT 4.33 10^6/uL (4.00-5.40); WHITE BLOOD COUNT 7.1 10^3/uL (4.0-10.0)
[2020-06-10 06:25] LABS: PLATELET COUNT, AUTOMATED 240 10^3/uL (150-450)
[2020-06-10 06:29] LABS: BLOOD UREA NITROGEN 9 MG/DL (7-18); CALCIUM LEVEL 7.7 MG/DL (8.5-10.1); CARBON DIOXIDE LEVEL 23 MEQ/L (21-32); CHLORIDE LEVEL 109 MEQ/L (98-107); CREATININE FOR GFR 0.56 MG/DL (0.55-1.30); GLOMERULAR FILTRATION RATE > 60.0 (>60); GLUCOSE, FASTING 124 MG/DL (70-100); LIPASE 357 U/L (73-393); POTASSIUM SERUM 3.6 MEQ/L (3.5-5.1); SODIUM LEVEL 140 MEQ/L (136-145)
[2020-06-10] MEDS: SUCRALFATE 1 GM TAB PO SCH (08:28)
[2020-06-10] MEDS: FOLIC ACID 1 MG TAB PO SCH (08:28)
[2020-06-10] MEDS: THIAMINE 100 MG TAB PO SCH (08:28)
[2020-06-10] MEDS: MULTIVITAMINS/MINERALS THERAP 1 TAB PO SCH (08:28)
--- NOTE | 2020-06-10 08:28 | ECGEPIP ---
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
[2020-06-10] MEDS: ENOXAPARIN 30MG/0.3ML SYRINGE (J1650 PER 10MG) SC SCH (08:33)
[2020-06-10] MEDS ORDERED: LORazepam 2 MG/ML VIAL IV PRN (10:15)
--- NOTE | 2020-06-10 10:16 | DS.PDOC ---
Discharge Summary General Date of Admission Jun 08, 2020 at 21:27 Date of Discharge 06/10/2020 Discharge Summary PROCEDURES PERFORMED DURING STAY: [None]. ADMITTING DIAGNOSES: 1. Nausea and vomiting 2. Acute kidney injury 3. Heroin withdrawal DISCHARGE DIAGNOSES: 1. Pancreatitis 2. Acute kidney injury now resolved 3. Heroin withdrawal COMPLICATIONS/CHIEF COMPLAINT: Heroin Withdrawal,Nausea & Vomiting, Substance [place]. HISTORY OF PRESENT ILLNESS: From admitting attendings H&P:Ms. Horne is a 29 year old female with polysubstance abuse and recently COVID positive (now negative) who is here for intractable nausea/vomiting with abdominal pain. Patient had last used Lashon and Heroin on Saturday. She was incarcerated for polysubstance use and moraes larceny and has not used Lashon or Heroin. She started to have abdominal pain, nausea, and vomiting. She has had 4 episodes of bilious green vomit today without signs of blood. She feels like she is withdrawing from her drugs. Otherwise, CT abdomen and pelvis was obtained which demonstrated distention of the stomach with secretions and air-fluid level and thickening of pyloric channel. ED consulted general surgery, no obstruction. ED spoke with GI about possible pyloric stenosis, nothing to do at this time. Otherwise, due to the nausea and vomiting patient is dry. Creatinine was 1.3 (not seen in [place], but seen on printed lab slip). Baseline creatinine 0.6. Patient will be admitted for acute kidney injury and intractable nausea and vomiting HOSPITAL COURSE: 29-year-old female history of heroin abuse currently incarcerated admitted to the hospital due to intractable nausea and vomiting found to have possible pancreatitis admitted to the medical unit for further management. # nausea and vomiting secondary to pancreatitis: Now resolved with IV fluids able to tolerate diet at time of discharge. Patient was given Zofran which helped. On exam yesterday abdomen was benign patient didn't report any abdominal pain. CT abdomen showed a normal pancreas. Lipase decreased from ~600 -350 # Febrile: Could be secondary to withdrawals is not been febrile for 24 hours. No obvious signs of infection. UA ok. CXR no acute findings. procalcitonin negative less than 0.05. # Leukocytosis: I think the initial measurement that was elevated was due to hemoconcentration as all values were elevated and normalized with IV fluids. procalcitonin negative. # Heroin abuse: Should be referred to addiction rehabilitation program. Symptomatic management of any withdrawal symptoms as they arise. # Acute kidney injury: This resolved with IV fluids was likely secondary to dehydration from vomiting. # Lactic acidosis: This resolved with IV fluids this was likely related to her nausea and vomiting causing hydration. # Hypokalemia: Replace potassium. Likely related to vomiting. # underweight: BMI 17.3. Dietitian consulted DISCHARGE MEDICATIONS: Please see below. ALLERGIES: Please see below. PHYSICAL EXAMINATION ON DISCHARGE: VITAL SIGNS: Please see below. Very limited physical exam as patient mostly refuses to be examined She does not allow me to auscultate her heart and lungs which were normal yesterday She did allow me to examine her abdomen which was soft and nontender to palpation. She appeared comfortable in bed she was sleeping when I walked into her room not in any distress She did not allow me to examine her any further I couldn't observe any obvious swelling in her extremities LABORATORY DATA: Please see below. IMAGING: See chart PROGNOSIS: Fair ACTIVITY: [As tolerated]. DIET: Regular diet DISPOSITION: Back home currently incarcerated DISCHARGE INSTRUCTIONS: Please follow up with your primary care physician within 1 week from discharge. If you do not have one, please follow up with us to schedule an appointment. Please keep all of your follow up appointments. Please call central to book your appointments with hospital specialists. Please take all your medications as prescribed. Please call/come to Clinic or go to the Emergency Department if - Temp >101, intractable Nausea/Vomiting, Diarrhea, Mouth sores, Headaches, Altered mental status, Seizures, sudden onset of swelling, bleeding, shortness of breath or chest pain. ITEMS TO FOLLOWUP ON ON OUTPATIENT: Follow-up with primary care physician within 3-5 days of discharge DISCHARGE CONDITION: [Stable]. TIME SPENT ON DISCHARGE: 35 minutes. Vital Signs/I&Os Vital Signs Date Time Temp Pulse Resp B/P (MAP) Pulse Ox O2 Delivery O2 Flow Rate FiO2 06/10/20 06:00 99.1 86 18 123/76 (92) 99 Room Air l I&O- Last 24 Hours up to 6 AM 06/10/20 06:00 Intake Total 765 ml Output Total 0 ml Balance 765 ml Laboratory Data Labs 24H Laboratory Tests 2 06/09/20 12:08: Procalcitonin <0.05 06/10/20 05:43: Nucleated Red Blood Cells % (auto) 0.0, Anion Gap 8, Glomerular Filtration Rate > 60.0, Calcium Level 7.7L, Lipase 357 CBC/BMP Laboratory Tests 06/10/20 05:43 Microbiology Microbiology 06/09/20 Blood Culture - Preliminary, Resulted No growth after 24 hours . All specim... 06/09/20 Blood Culture - Preliminary, Resulted No growth after 24 hours . All specim... Discharge Medications No Active Prescriptions or Reported Meds Allergies Coded Allergies: Penicillins (Verified Allergy, Mild, RASH, 06/08/20) amoxicillin (Verified Allergy, Mild, RASH, 06/08/20) TURKEY (Verified Adverse Reaction, Mild, FACE TINGLES, 01/19/17) ABA CASEY MD Jun 10, 2020 10:16
== END 2020-06-10 10:38 | DRG 282 ==
LOC: M ED 15:16 → M ED INP 21:27 → M MS5PR 23:14
PROVIDERS: ADMIT Internal Medicine; ATTEND Family Medicine
DX: K85.90 Acute pancreatitis without necrosis or infection, unspecified (principal); N17.9 Acute kidney failure, unspecified; D72.829 Elevated white blood cell count, unspecified; E87.2 Acidosis; E87.6 Hypokalemia; Z68.1 Body mass index [BMI] 19.9 or less, adult; F11.10 Opioid abuse, uncomplicated; Z88.0 Allergy status to penicillin; Z91.018 Allergy to other foods; J45.909 Unspecified asthma, uncomplicated; F12.90 Cannabis use, unspecified, uncomplicated

== ENCOUNTER → 2020-06-08 | Outpatient (REF) | payer OTHER ==
[~2020-06-08] MED LIST changes: -BUPR150T3 PO; +BUPR150T4 PO; +DOXY-350 PO
== END ==
LOC: M LAB REF 15:43
PROVIDERS: ATTEND Surgery
DX: U07.1 COVID-19 (principal)

== ENCOUNTER → 2020-06-29 | Outpatient (REF) | payer OTHER ==
[~2020-06-29] MED LIST changes: +BUPR150T12 PO; -BUPR150T4 PO
== END ==
LOC: M LAB REF 15:49
PROVIDERS: ATTEND Surgery
DX: A64 Unspecified sexually transmitted disease (principal)